=== PATIENT | female | born 1960 | race Caucasian/White ===

== ENCOUNTER 2017-07-27 12:55 | Emergency (ER) | payer SELFPAY ==
[2010-03-10 07:36] VITALS: BMI 27.8
[2017-07-27 14:03] LABS: BASOPHILS 0.4 % (0-2); EOSINOPHILS 1.2 % (0-7); HEMATOCRIT 36.7 % (36.0-48.0); HEMOGLOBIN 12.2 g/dL (12-16); IMMATURE GRANULOCYTES 0.5 % (0-5); LYMPHOCYTES 33.7 % (15-50); MCH 31.9 pg (26.0-34.0); MCHC 33.2 g/dL (31.0-37.0); MCV 95.8 fL (80.0-100.0); MEAN PLATELET VOLUME 9.5 fL (7.4-10.4); MONOCYTES 8.5 % (2-11); NEUTROPHILS 55.7 % (40-80); RBC 3.83 10x6/uL (4.00-5.40); RDW 13.6 % (11.5-14.5); WBC 13.6 10x3/uL (4.8-10.8)
[2017-07-27 14:04] LABS: ALBUMIN 3.2 g/dL (3.4-5.0); BILIRUBIN - TOTAL 0.3 mg/dL (0.2-1.3); CARBON DIOXIDE 23.6 mmol/L (21.0-32.0); CREATININE - SERUM 1.1 mg/dL (0.6-1.3); POTASSIUM - SERUM 3.6 mmol/L (3.5-5.1); PROTEIN - SERUM 6.3 g/dL (6.4-8.2)
[2017-07-27 14:06] LABS: PLATELET COUNT 311 10x3/uL (130-400)
[2017-07-27 14:51] LABS: APPEARANCE CLEAR (CLEAR); COLOR YELLOW (YELLOW)
[2017-07-27 14:52] LABS: BILIRUBIN NEGATIVE (NEGATIVE); GLUCOSE NEGATIVE (NEGATIVE); KETONE NEGATIVE (NEGATIVE); LEUKOCYTE ESTERASE NEGATIVE (NEGATIVE); NITRITE NEGATIVE (NEGATIVE); PROTEIN NEGATIVE (NEGATIVE); UROBILINOGEN NORMAL (NORMAL)
[2017-07-27 15:22] LABS: UDS - AMPHET NEGATIVE QUAL (NEGATIVE); UDS - BARB NEGATIVE QUAL (NEGATIVE); UDS - BENZO NEGATIVE QUAL (NEGATIVE); UDS - COCAINE NEGATIVE QUAL (NEGATIVE); UDS - METH NEGATIVE QUAL (NEGATIVE); UDS - OPIATE NEGATIVE QUAL (NEGATIVE); UDS - PCP NEGATIVE QUAL (NEGATIVE); UDS - THC NEGATIVE QUAL (NEGATIVE)
== END 2017-07-27 15:50 | disposition left against medical advice (07) ==
LOC: D.ER 12:55
PROVIDERS: Physician Assistant
DX: I95.9 Hypotension, unspecified (principal); G89.29 Other chronic pain; I10 Essential (primary) hypertension; R53.83 Other fatigue; F17.200 Nicotine dependence, unspecified, uncomplicated

== ENCOUNTER 2019-08-24 22:22 | Inpatient (IN) | payer MEDICARE ==
[~2019-08-24] VITALS: Ht 162.6 cm; Wt 67.6 kg
[2019-08-24] MEDS ORDERED: AMITRIPTYLINE H50 MG PO (22:27)
[2019-08-24] MEDS ORDERED: REXULTI1 MG PO (22:27)
[2019-08-24] MEDS ORDERED: ALBUTEROL SULF8.5 GM INH (22:28)
[2019-08-24 22:59] LABS: BASOPHILS 0.1 % (0-2); EOSINOPHILS 1.3 % (0-7); HEMATOCRIT 34.7 % (36.0-48.0); HEMOGLOBIN 11.8 g/dL (12-16); IMMATURE GRANULOCYTES 0.3 % (0-5); LYMPHOCYTES 17.4 % (15-50); MCH 31.8 pg (26.0-34.0); MCV 93.5 fL (80.0-100.0); MEAN PLATELET VOLUME 9.4 fL (7.4-10.4); MONOCYTES 7.1 % (2-11); NEUTROPHILS 73.8 % (40-80); PLATELET COUNT 274 10x3/uL (130-400); RBC 3.71 10x6/uL (4.00-5.40); RDW 13.3 % (11.5-14.5); WBC 14.9 10x3/uL (4.8-10.8)
[2019-08-24 23:22] LABS: ALBUMIN 2.8 g/dL (3.4-5.0); ANION GAP 14.4 mmol/L (8-16); BILIRUBIN - TOTAL 0.41 mg/dL (0.2-1.3); CALCIUM 8.4 mg/dL (8.5-10.1); CARBON DIOXIDE 25.9 mmol/L (21.0-32.0); CREATININE - SERUM 0.9 mg/dL (0.6-1.3); POTASSIUM - SERUM 2.3 mmol/L (3.5-5.1)
[2019-08-25 00:04] LABS: APPEARANCE CLEAR (CLEAR); BILIRUBIN NEGATIVE (NEGATIVE); COLOR STRAW (YELLOW); GLUCOSE NEGATIVE (NEGATIVE); KETONE NEGATIVE (NEGATIVE); NITRITE NEGATIVE (NEGATIVE); PROTEIN NEGATIVE (NEGATIVE); UROBILINOGEN NORMAL (NORMAL)
--- NOTE | 2019-08-25 01:04 | NUR ---
PT ARRIVED ON UNIT VIA WHEELCHAIR, ESCORTED BY ER NURSE. ORIENTED TO ROOM AND CALL LIGHT. ASSISTED IN PUTTING ON GOWN. POSITIONED IN BED FOR COMFORT.
[2019-08-25] MEDS ORDERED: AMBIEN10 MG PO (01:25)
[2019-08-25] MEDS ORDERED: ZOLOFT50 MG PO (01:26)
[2019-08-25 01:36] VITALS: BP 151/88; BMI 25.6
--- NOTE | 2019-08-25 03:10 | NUR ---
GAVE HS MEDS TO INCLUDE ORDERED ANTIBIOBICS.
--- NOTE | 2019-08-25 04:46 | NUR ---
PT RESTING QUIETLY AT THIS TIME, WITH OCCAISIONAL CONGESTED COUGH.
[2019-08-25 05:04] VITALS: BP 110/68
[2019-08-25 07:26] LABS: BASOPHILS 0.2 % (0-2); EOSINOPHILS 0 % (0-7); HEMATOCRIT 34.2 % (36.0-48.0); HEMOGLOBIN 11.2 g/dL (12-16); IMMATURE GRANULOCYTES 0.2 % (0-5); MCH 31.3 pg (26.0-34.0); MCHC 32.7 g/dL (31.0-37.0); MCV 95.5 fL (80.0-100.0); MEAN PLATELET VOLUME 9.9 fL (7.4-10.4); MONOCYTES 0.8 % (2-11); NEUTROPHILS 92.8 % (40-80); PLATELET COUNT 263 10x3/uL (130-400); RBC 3.58 10x6/uL (4.00-5.40); RDW 13.7 % (11.5-14.5); WBC 10.5 10x3/uL (4.8-10.8)
[2019-08-25 07:52] LABS: % SATURATION 13 % (15-55); IRON 32 ug/dl (35-150); TOTAL IRON BIND CAPACITY 243 ug/dl (260-445); UNSAT IRON BIND CAPACITY 211 ug/dl (150-375)
[2019-08-25 08:00] LABS: ALBUMIN 2.4 g/dL (3.4-5.0); BILIRUBIN - TOTAL 0.2 mg/dL (0.2-1.3); CALCIUM 8.6 mg/dL (8.5-10.1); CARBON DIOXIDE 21.8 mmol/L (21.0-32.0); CREATININE - SERUM 0.9 mg/dL (0.6-1.3); MAGNESIUM - SERUM 1.8 mg/dL (1.8-2.4); PHOSPHOROUS 2.7 mg/dL (2.5-4.9); PROTEIN - SERUM 5.8 g/dL (6.4-8.2)
[2019-08-25 08:01] LABS: ANION GAP 16.5 mmol/L (8-16); POTASSIUM - SERUM 3.3 mmol/L (3.5-5.1)
[2019-08-25 08:06] VITALS: BP 153/89
[2019-08-25 09:17] LABS: UDS - AMPHET NEGATIVE QUAL (NEGATIVE); UDS - BARB NEGATIVE QUAL (NEGATIVE); UDS - BENZO NEGATIVE QUAL (NEGATIVE); UDS - COCAINE NEGATIVE QUAL (NEGATIVE); UDS - OPIATE NEGATIVE QUAL (NEGATIVE); UDS - PCP NEGATIVE QUAL (NEGATIVE); UDS - THC NEGATIVE QUAL (NEGATIVE)
--- NOTE | 2019-08-25 12:27 | NUR ---
PT RESTING IN BED. NO SIGNS OF DISTRESS. IV TO RIGHT AC PATENT NO REDNESS OR TENDERENSS. ON 2L NC. ON TELEMETRY [address] DENIES ANY FURTHER NEED AT THIS TIME. CALL LIGHT IN REACH. BED LOW POSITION. NO FAMILY AT BEDSIDE AT THIS TIME.
[2019-08-25 12:56] VITALS: BP 131/72
[2019-08-25 13:54] VITALS: Ht 162.6 cm; Wt 67.6 kg
--- NOTE | 2019-08-25 15:50 | MORECARE ---
CASE MANAGEMENT DISCHARGE SUMMARY PATIENT: NIELS HENSLEY UNIT: [id number] ADM DATE: 08/25/19 AGE: 58 : 60 SEX: F ROOM/BED: D.2229 AUTHOR: ARIANNA,DOC PHYSICIAN: REFERRING PHYSICIAN: TOM DC MD DATE OF SERVICE: 08/25/19 Discharge Plan Patient Name: NIELS HENSLEY Facility: [facility]:[place] : 1960 Planned Disposition: Home Anticipated Discharge Date: Discharge Date: Expected LOS: Initial Reviewer: [email or web address] Initial Review Date: 08/25/2019 Generated: 08/25/19 4:50 pm Comments DCP- Discharge Planning Updated by [email or web address]: Jacqueline Malik on 08/25/19 2:[address] Patient Name: NIELS HENSLEY Admission Status: ER Accout number: [id number] Admission Date: 08-25-2019 : 1960 Admission Diagnosis: Attending: TOM CD Current LOS: 1 Anticipated DC Date: Planned Disposition: Home Primary Insurance: MEDICARE A & B Discharge Planning Comments: CM met with patient to complete initial dc planning assessment. CM educated patient on the CM role and verbal consent given by patient to complete assessment. Patient lives at home with a room mate. States she lives at [address] [place] [address] in [place]. At discharge patient plans to return and feels this is a safe discharge. CM discussed availability of home health, rehab services, and medical equipment. Patient denied known discharge needs at this time. States her friend, Bonny, will take her home on discharge. CM will continue to follow and will assist as needed with dc plans/needs. Check Processor: Jacqueline Malik DCPIA - Discharge Planning Initial Assessment Updated by [id number]: Jacqueline Malik on 08/25/19 3:48 pm * Is the patient Alert and Oriented? Yes * How many steps to enter\exit or inside your home? 4/0 * PCP Dr. Doll * Pharmacy [facility] on [address] [facility] * Preadmission Environment Home with Family * ADLs Independent * Equipment None * List name and contact numbers for known caregivers / representatives who currently or will assist patient after discharge: oBnny - [phone] - [phone] * Verbal permission to speak to the caregivers and representatives has been obtained from the patient. Yes * Community resources currently utilized None * Additional services required to return to the preadmission environment? No * Can the patient safely return to the preadmission environment? Yes * Has this patient been hospitalized within the prior 30 days at any hospital? No Patient Name: NIELS HENSLEY Page 66201 at 1550 All edits/amendments must be made on the electronic document DICTATION DATE: 08/25/19 155 SECURITIES ADVISER: JOSÉ MIGUEL 08/25/19 1550 RPT#: [id number] DC DATE: STATUS: ADM IN [facility] [address] [place] [address] END OF REPORT
[2019-08-25 17:07] VITALS: BP 127/85
[2019-08-25 20:00] VITALS: BP 116/80
[2019-08-26] VITALS: BP 133/84
--- NOTE | 2019-08-26 01:50 | NUR ---
I have reviewed this patient and I concur with the Shift Assessment completed by the Licensed Practical Nurse today this shift.
--- NOTE | 2019-08-26 03:56 | NUR ---
A&O X 4. REPORTS SORE THROAT FROM COUGHING. REPORTS PRODUCTIVITY, BUT UNABLE TO COUGH UP ANY SPUTUM AT THIS TIME. PT IS AMBULATORY AD EJ. REQUESTS SNACK. INFORMED PT ON GLUCOSE AND DIET. PT VERBALIZED UNDERSTANDING. DENIES NEEDS AT THIS TIME.
[2019-08-26 04:00] VITALS: BP 137/91
[2019-08-26 06:06] LABS: BASOPHILS 0.1 % (0-2); EOSINOPHILS 0 % (0-7); HEMATOCRIT 31.3 % (36.0-48.0); IMMATURE GRANULOCYTES 0.4 % (0-5); LYMPHOCYTES 7.1 % (15-50); MCH 31.2 pg (26.0-34.0); MCHC 31.9 g/dL (31.0-37.0); MEAN PLATELET VOLUME 10.1 fL (7.4-10.4); MONOCYTES 3.7 % (2-11); NEUTROPHILS 88.7 % (40-80); PLATELET COUNT 272 10x3/uL (130-400); RBC 3.21 10x6/uL (4.00-5.40)
[2019-08-26 06:17] LABS: MCV 97.5 fL (80.0-100.0); WBC 15.8 10x3/uL (4.8-10.8)
[2019-08-26 06:30] LABS: CALCIUM 8.5 mg/dL (8.5-10.1); CARBON DIOXIDE 24.4 mmol/L (21.0-32.0); CHLORIDE - SERUM 112 mmol/L (98-107); CREATININE - SERUM 0.8 mg/dL (0.6-1.3); MAGNESIUM - SERUM 1.8 mg/dL (1.8-2.4); SODIUM 145 mmol/L (136-145); eGFR NON AFRICAN AMERICAN 78 mL/min (90-120)
[2019-08-26 06:33] LABS: CALC OSMOLALITY 291 mosm/kg (275-300); GLUCOSE 126 mg/dL (74-106); PHOSPHOROUS 3.4 mg/dL (2.5-4.9); POTASSIUM - SERUM 4.6 mmol/L (3.5-5.1); UREA NITROGEN 15 mg/dL (7-18)
[2019-08-26 09:47] VITALS: BP 117/75
--- NOTE | 2019-08-26 10:26 | NUR ---
REC'D PT LYING IN BED RESP EVEN AND UNLABORED LUNG SOUNDS CLEAR RESP EVEN AND UNLABORED O2@1L/MIN VIA NC CONTINUOUSLY. HEART RATE IRREGULAR AT THIS TIME. SKIN PINK WARM AND DRY WITH GOOD TURGOR NO EDEMA NOTED TO BLE. IV TO RIGHT AC PATENT AND INTACT AT THIS TIME. SRX2 BED AT LOWEST SETTING WITH BRAKES LOCKED CALL LIGHT WITHIN REACH WILL CONTINUE TO MONITOR.
[2019-08-26 13:39] VITALS: BP 117/77
[2019-08-26 17:00] VITALS: BP 121/69
--- NOTE | 2019-08-26 19:15 | NUR ---
RECEIVED CARE FROM DAY NURSE. SITTING UP IN BED WATCHING TV. NO NEEDS VOICED AT THIS TIME. CALL LIGHT AT SIDE. IV INFUSING PER ORDER TO PATENT RIGHT AC PER ORDER.
[2019-08-26 20:45] VITALS: BP 119/80
--- NOTE | 2019-08-27 00:20 | NUR ---
IV IN RIGHT AC LEAKING, SWOLLEN, AND RED. DC'D WITH TIP INTACT. RESITED TO RIGHT FA. 22 GAUGE X3 STICKS WITH GOOD BLOOD RETURN NOTED.
[2019-08-27 00:46] VITALS: BP 135/91
--- NOTE | 2019-08-27 02:25 | NUR ---
I have reviewed this patient and I concur with the Shift Assessment completed by the Licensed Practical Nurse today this shift.
[2019-08-27 05:10] VITALS: BP 120/85
[2019-08-27 06:19] LABS: BASOPHILS 0.1 % (0-2); EOSINOPHILS 0 % (0-7); HEMATOCRIT 34.3 % (36.0-48.0); HEMOGLOBIN 10.8 g/dL (12-16); IMMATURE GRANULOCYTES 1.1 % (0-5); LYMPHOCYTES 9.3 % (15-50); MCH 31.3 pg (26.0-34.0); MCHC 31.5 g/dL (31.0-37.0); MCV 99.4 fL (80.0-100.0); MONOCYTES 3.9 % (2-11); NEUTROPHILS 85.6 % (40-80); PLATELET COUNT 321 10x3/uL (130-400); RBC 3.45 10x6/uL (4.00-5.40); RDW 14.3 % (11.5-14.5); WBC 18.6 10x3/uL (4.8-10.8)
[2019-08-27 07:25] LABS: ANION GAP 13.8 mmol/L (8-16); CALCIUM 8.1 mg/dL (8.5-10.1); CARBON DIOXIDE 23.9 mmol/L (21.0-32.0); MAGNESIUM - SERUM 1.6 mg/dL (1.8-2.4); PHOSPHOROUS 3.9 mg/dL (2.5-4.9); POTASSIUM - SERUM 4.7 mmol/L (3.5-5.1)
[2019-08-27 07:29] LABS: CREATININE - SERUM 1.1 mg/dL (0.6-1.3)
[2019-08-27 09:36] VITALS: BP 121/87
--- NOTE | 2019-08-27 09:45 | NUR ---
ALERT AND ORIENTED X4. REFUSES SCD'S WITH NO PERIPHERAL EDEMA AND PEDAL PULSES NOTED. EXPIRATORY WHEEZES NOTED TO RUQ,RLQ, AND LLQ POSTERIOR. INSTRUCTED ON NEED FOR SPUTUM SPECEMIN. NO DYSPNEA NOTED AT THIS TIME. ENCOURAGED TO USE CALLL LIGHT FOR ASSSIT AND CAP REFILL <3 SEC.
[2019-08-27 12:34] VITALS: BP 135/82
[2019-08-27 16:47] VITALS: BP 127/86
--- NOTE | 2019-08-27 19:15 | NUR ---
RECEIVED CARE FROM DAY NURSE. LYING IN BED WATCHING TV. NO NEEDS VOICED AT THIS TIME. CALL LIGHT AT SIDE. IV INFUSING PER ORDER TO RIGHT FA.
[2019-08-27 20:56] VITALS: BP 129/81
--- NOTE | 2019-08-27 23:38 | NUR ---
IV IN RIGHT FA RED AND SWOLLEN. DC'D WITH TIP INTACT. RESITED TO RIGHT FA. 22 GAUGE X2 STICKS WITH GOOD BLOOD RETURN NOTED.
[2019-08-28 01:48] VITALS: BP 126/76
[2019-08-28 05:24] VITALS: BP 120/61
[2019-08-28 05:41] LABS: BASOPHILS 0.1 % (0-2); EOSINOPHILS 0 % (0-7); HEMATOCRIT 33.6 % (36.0-48.0); HEMOGLOBIN 10.5 g/dL (12-16); IMMATURE GRANULOCYTES 1.3 % (0-5); LYMPHOCYTES 13.5 % (15-50); MCH 31.1 pg (26.0-34.0); MCHC 31.3 g/dL (31.0-37.0); MCV 99.4 fL (80.0-100.0); MEAN PLATELET VOLUME 10.1 fL (7.4-10.4); NEUTROPHILS 81.1 % (40-80); PLATELET COUNT 298 10x3/uL (130-400); RBC 3.38 10x6/uL (4.00-5.40); RDW 14.1 % (11.5-14.5)
[2019-08-28 05:48] LABS: WBC 11.9 10x3/uL (4.8-10.8)
[2019-08-28 05:55] LABS: ANION GAP 11.2 mmol/L (8-16); CALCIUM 7.7 mg/dL (8.5-10.1); CARBON DIOXIDE 28.5 mmol/L (21.0-32.0); MAGNESIUM - SERUM 1.8 mg/dL (1.8-2.4); PHOSPHOROUS 3.7 mg/dL (2.5-4.9); POTASSIUM - SERUM 4.7 mmol/L (3.5-5.1)
[2019-08-28 07:59] VITALS: BP 134/91
--- NOTE | 2019-08-28 08:08 | NUR ---
AWAKE AND ALERT. ORIENTED X3. NO C/O THIS AM. LUNGS ARE CLEAR BILATERALLY, NO COUGH NOTED. SKIN IS INTACT WTIHOUT REDNESS. IV TO RIGHT FOREARM IS PATENT WITHOUT REDNESS AT INSERTION SITE. REPORTS UPTO BR PER SELF WITH GOOD BM. DENIES NEEDS.
--- NOTE | 2019-08-28 10:11 | NUR ---
ATE MOST OF BREAKFAST. TOOK AM MEDS WITHOUT DIFFICULTY. NO NEEDS NOTED.
--- NOTE | 2019-08-28 11:30 | NUR ---
FSBS 129. NO COVERAGE REQUIRED.
[2019-08-28 15:55] VITALS: BP 120/80
--- NOTE | 2019-08-28 17:00 | NUR ---
FSBS 179. GIVEN 4 UNITS SUBQ PER SS OF REGULAR.
--- NOTE | 2019-08-28 18:49 | NUR ---
ATE ALL OF SUPPER. DENIES NEEDS. NO CHANGES NOTED.
--- NOTE | 2019-08-28 20:00 | NUR ---
A/O WITH NO SIGNS OF ACUTE DISTRESS. IV TO THE RT FOREARM WITH NO REDNESS OR SWELLING. O2 VIA NC @2L. DENIES PAIN OR OTHER NEEDS AT THIS TIME. CONTINUE WITH PLAN OF CARE.
[2019-08-28 22:28] VITALS: BP 130/91
[2019-08-29] VITALS: BP 145/84
[2019-08-29 05:16] LABS: BASOPHILS 0.1 % (0-2); EOSINOPHILS 0 % (0-7); HEMATOCRIT 34.4 % (36.0-48.0); HEMOGLOBIN 10.9 g/dL (12-16); LYMPHOCYTES 14.2 % (15-50); MCH 31.2 pg (26.0-34.0); MCHC 31.7 g/dL (31.0-37.0); MCV 98.6 fL (80.0-100.0); MEAN PLATELET VOLUME 9.7 fL (7.4-10.4); MONOCYTES 5.5 % (2-11); NEUTROPHILS 77.2 % (40-80); PLATELET COUNT 288 10x3/uL (130-400); RBC 3.49 10x6/uL (4.00-5.40); RDW 13.8 % (11.5-14.5); WBC 13.2 10x3/uL (4.8-10.8)
[2019-08-29 05:47] LABS: CALCIUM 8.1 mg/dL (8.5-10.1); CREATININE - SERUM 1.1 mg/dL (0.6-1.3); MAGNESIUM - SERUM 1.8 mg/dL (1.8-2.4); PHOSPHOROUS 4.2 mg/dL (2.5-4.9)
[2019-08-29 06:13] VITALS: BP 140/72
--- NOTE | 2019-08-29 07:28 | NUR ---
PT IS RESTING IN BED WITH EYES OPEN. RESPIRATIONS ARE EVEN AND UNLABORED. PT DENIES PRESENCE OF PAIN/N/V AT THIS TIME. O2 VIA NC @ 2L. PT DENIES PRESENCE OF DYSPNEA/SOB. PIV TO RIGHT FA IS INFUSING WITHOUT DIFFICULTY. BED IS IN THE LOWEST POSITION. CALL LIGHT AND BEDSIDE TABLE ARE WITHIN REACH. SIDE RAILS X 2. PT DENIES FURTHER NEEDS. WILL CONT TO MONITOR.
[2019-08-29 08:55] VITALS: BP 156/94
[2019-08-29 12:15] VITALS: BP 147/91
--- NOTE | 2019-08-29 14:25 | MORECARE ---
CASE MANAGEMENT DISCHARGE SUMMARY PATIENT: NIELS HENSLEY UNIT: [id number] ADM DATE: 08/25/19 AGE: 58 : 60 SEX: F ROOM/BED: D.2229 AUTHOR: ARIANNA,DOC PHYSICIAN: REFERRING PHYSICIAN: TOM DC MD DATE OF SERVICE: 08/29/19 Discharge Plan Patient Name: NIELS HENSLEY Facility: [facility]:[place] : 1960 Planned Disposition: Home Anticipated Discharge Date: Discharge Date: Expected LOS: Initial Reviewer: [email or web address] Initial Review Date: 08/25/2019 Generated: 08/29/19 3:25 pm DCP- Discharge Planning Updated by [email or web address]: Jacqueline Malik on 08/25/19 2:[address] Patient Name: NIELS HENSLEY Admission Status: ER Accout number: [id number] Admission Date: 08-25-2019 : 1960 Admission Diagnosis: Attending: TOM DC Current LOS: 1 Anticipated DC Date: Planned Disposition: Home Primary Insurance: MEDICARE A & B Discharge Planning Comments: CM met with patient to complete initial dc planning assessment. CM educated patient on the CM role and verbal consent given by patient to complete assessment. Patient lives at home with a room mate. States she lives at [address] [place] [address] in [place]. At discharge patient plans to return and feels this is a safe discharge. CM discussed availability of home health, rehab services, and medical equipment. Patient denied known discharge needs at this time. States her friend, Bonny, will take her home on discharge. CM will continue to follow and will assist as needed with dc plans/needs. Priest: Jacqueline Malik DCPIA - Discharge Planning Initial Assessment Updated by [email or web address]: Jacqueline Malik on 08/25/19 3:48 pm * Is the patient Alert and Oriented? Yes * How many steps to enter\exit or inside your home? 4/0 * PCP Dr. Doll * Pharmacy [facility] on [address] [facility] * Preadmission Environment Home with Family * ADLs Independent * Equipment None * List name and contact numbers for known caregivers / representatives who currently or will assist patient after discharge: Bonny - [phone] - [phone] * Verbal permission to speak to the caregivers and representatives has been obtained from the patient. Yes * Community resources currently utilized None * Additional services required to return to the preadmission environment? No * Can the patient safely return to the preadmission environment? Yes * Has this patient been hospitalized within the prior 30 days at any hospital? No External Providers External Provider: Ramon Contreras Contact Date: Service Request Date: Service Type: Resolution: Reviewer: Comments: Last DP export: 08/25/19 2:50 p Patient Name: NIELS HENSLEY Page [phone] at 1425 All edits/amendments must be made on the electronic document DICTATION DATE: 08/29/191424 COMMISSIONER CONSERVATION OF RESOURCES: JOSÉ MIGUEL 08/29/191424 RPT#: [id number] DC DATE: STATUS: ADM IN [facility] [address] [place] [address] END OF REPORT
--- NOTE | 2019-08-29 15:03 | MORECARE ---
CASE MANAGEMENT DISCHARGE SUMMARY PATIENT: NIELS HENSLEY UNIT: [id number] ADM DATE: 08/25/19 AGE: 58 : 60 SEX: F ROOM/BED: D.2229 AUTHOR: KUNAL KELLER PHYSICIAN: REFERRING PHYSICIAN: TOM DC MD DATE OF SERVICE: 08/29/19 Discharge Plan Patient Name: NIELS HENSLEY Facility: [facility]:[place] : 1960 Planned Disposition: Home Anticipated Discharge Date: Discharge Date: Expected LOS: Initial Reviewer: [email or web address] Initial Review Date: 08/25/2019 Generated: 08/29/19 4:02 pm Comments DCP- Discharge Planning Updated by [email or web address]: Jacqueline Malik on 08/29/19 1:[address] I met with patient about her oxygen needs and nebulizer needs. I informed her that she would need to buy a box of duo neb at her pharmacy until she can have her [employer] company deliver it. She states that her friend at [address] [place] [address] just called and states she can no longer come there to live. She has called another friend (Katy Buchanan) and states she is going to go to [place] to live with her. States Katy has a motor home that she is setting up at a camp ground that she will be going to when she is discharged from here. I informed her that she will need electricity for her oxygen and she states they will have electricity. She is unsure what town she will be going to in [place] and states that Katy does not have a phone. She states she has left a message for Katy to call her. I instructed her to notify us when Katy gives her the address that she will be going to when she leaves the hospital. I spoke with Peyman Artis, she will bring portable to the hospital and states they can set up oxygen in a motor home. CM will continue to follow and assist with discharge planning/needs. DCP- Discharge Planning Updated by [email or web address]: Jacqueline Malik on 08/25/19 2:[address] Patient Name: NIELS HENSLEY Admission Status: ER Accout number: [id number] Admission Date: 08-25-2019 : 1960 Admission Diagnosis: Attending: TOM DC Current LOS: 1 Anticipated DC Date: Planned Disposition: Home Primary Insurance: MEDICARE A & B Discharge Planning Comments: CM met with patient to complete initial dc planning assessment. CM educated patient on the CM role and verbal consent given by patient to complete assessment. Patient lives at home with a room mate. States she lives at [address] [place] [address] in [place]. At discharge patient plans to return and feels this is a safe discharge. CM discussed availability of home health, rehab services, and medical equipment. Patient denied known discharge needs at this time. States her friend, Bonny, will take her home on discharge. CM will continue to follow and will assist as needed with dc plans/needs. Quality Systems Specialist: Jacqueline Malik DCPIA - Discharge Planning Initial Assessment Updated by [email or web address]: Jacqueline Malik on 08/25/19 3:48 pm * Is the patient Alert and Oriented? Yes * How many steps to enter\exit or inside your home? 4/0 * PCP Dr. Doll * Pharmacy [facility] on [facility] * Preadmission Environment Home with Family * ADLs Independent * Equipment None * List name and contact numbers for known caregivers / representatives who currently or will assist patient after discharge: Bonny - friend - [phone] * Verbal permission to speak to the caregivers and representatives has been obtained from the patient. Yes * Community resources currently utilized None * Additional services required to return to the preadmission environment? No * Can the patient safely return to the preadmission environment? Yes * Has this patient been hospitalized within the prior 30 days at any hospital? No Coverage Notice Reviewer: [id number] Melanie Malik Notice Issued Date-Time: 08/29/2019 14:34 Notice Type: IM Discharge Notice Notice Delivered To: Patient Relationship to Patient: Self Supervisor Files Name: Delivery Method: HAND - Hand Delivered Bonnie Days: Prior Verbal Notification: Recipient Understood Notice: Yes Recipient Signature: Yes Med Rec Note Co-signed by Attending: Coverage Notice Comment: IMM explained, signed, given, copy placed in MR Reviewer: [email or web address] Melanie Malik Notice Issued Date-Time: 08/29/2019 14:34 Notice Type: Patient Choice Letter Notice Delivered To: Patient Relationship to Patient: Self Supervisor Files Name: Delivery Method: HAND - Hand Delivered Bonnie Days: Prior Verbal Notification: Recipient Understood Notice: Yes Recipient Signature: Yes Med Rec Note Co-signed by Attending: Coverage Notice Comment: ROSEANNA for Yeyo Meyers DP export: 08/29/19 1:25 p Patient Name: NIELS HENSLEY Page [id number] at 1503 All edits/amendments must be made on the electronic document DICTATION DATE: 08/29/191501 PROCESS EXCELLENCE MANAGER: JOSÉ MIGUEL 08/29/191501 RPT#: [id number] DC DATE: STATUS: ADM IN [facility] [address] [place] [address] END OF REPORT
[2019-08-29 16:20] VITALS: BP 122/90
--- NOTE | 2019-08-29 16:44 | NUR ---
RIGHT ARM PIV LEAKING. PT STATES THAT SHE WOULD LIKE TO NOT HAVE IV ACCESS REATTEMPTED AT THIS TIME.
--- NOTE | 2019-08-29 20:00 | NUR ---
ASSESSMENT PER FLOWSHEET. IV PATENT LEFT WRIST OF NS W/40MEQ KCL AT 75CC'S/HR.O2 AT 2L/M PER NC. PATIENT TAKES OFF AND ON. SR UP X2 CALL LIGHT WITHIN REACH.
--- NOTE | 2019-08-29 21:30 | NUR ---
MEDS GIVEN PER MAR.
[2019-08-29 22:21] VITALS: BP 166/103
--- NOTE | 2019-08-30 | NUR ---
EYES CLOSED RESPIRATIONS WITH EASE AND UNLABORED.
[2019-08-30 01:50] VITALS: BP 130/81
--- NOTE | 2019-08-30 04:10 | NUR ---
RESTING QUIETLY DENIES NEEDS.
[2019-08-30 04:58] VITALS: BP 154/80
[2019-08-30 06:36] LABS: BASOPHILS 0.1 % (0-2); EOSINOPHILS 0.1 % (0-7); HEMATOCRIT 33.7 % (36.0-48.0); HEMOGLOBIN 10.9 g/dL (12-16); IMMATURE GRANULOCYTES 4.6 % (0-5); LYMPHOCYTES 18.9 % (15-50); MCH 31.6 pg (26.0-34.0); MCHC 32.3 g/dL (31.0-37.0); MCV 97.7 fL (80.0-100.0); MEAN PLATELET VOLUME 9.9 fL (7.4-10.4); MONOCYTES 8.4 % (2-11); NEUTROPHILS 67.9 % (40-80); PLATELET COUNT 300 10x3/uL (130-400); RBC 3.45 10x6/uL (4.00-5.40); RDW 13.9 % (11.5-14.5)
[2019-08-30 06:49] LABS: CALCIUM 7.8 mg/dL (8.5-10.1); MAGNESIUM - SERUM 2.1 mg/dL (1.8-2.4); PHOSPHOROUS 4.2 mg/dL (2.5-4.9)
--- NOTE | 2019-08-30 07:39 | NUR ---
PT IS RESTING IN BED WITH EYES CLOSED. RESPIRATIONS ARE EVEN AND UNLABORED. PT DENIES PRESENCE OF PAIN/N/V. PIV IS INFUSING TO LEFT FA WITHOUT DIFFICULTY. PT IS AAO X 4. O2 VIA NC @ 3L. PT DENEIS PRESENCE OF DYSPNEA/SOB. BED IS IN THE LOWEST POSITION. CALL LIGHT AND BEDSIDE TABLE ARE WITHIN REACH. SIDE RAILS X 2. PT DENIES FURTHER NEEDS.
[2019-08-30 09:03] VITALS: BP 135/90
--- NOTE | 2019-08-30 11:18 | NUR ---
PT PIV IS SALINE LOCKED AT THIS TIME.
[2019-08-30] MEDS ORDERED: PROTONIX40 MG PO (11:25)
[2019-08-30] MEDS ORDERED: TESSALON PERLE100 MG PO (11:25)
[2019-08-30] MEDS ORDERED: MUCINEX600 MG PO (11:25)
[2019-08-30] MEDS ORDERED: FLUTICASONE PRO16 GM NASAL (11:25)
[2019-08-30] MEDS ORDERED: REQUIP0.25 MG PO (11:25)
[2019-08-30] MEDS ORDERED: ZITHROMAX500 MG PO (11:26)
[2019-08-30] MEDS ORDERED: Nicoderm [PBKC] TRANSDERM (11:26)
[2019-08-30] MEDS ORDERED: LISINOPRIL10 MG PO (11:26)
[2019-08-30] MEDS ORDERED: PREDNISONE10 MG PO (11:26)
[2019-08-30] MEDS ORDERED: OMNICEF300 MG PO (11:26)
--- NOTE | 2019-08-30 11:27 | MORECARE ---
CASE MANAGEMENT DISCHARGE SUMMARY PATIENT: NIELS HENSLEY UNIT: [id number] ADM DATE: 08/25/19 AGE: 58 : 60 SEX: F ROOM/BED: D.2229 AUTHOR: ARIANNADOC PHYSICIAN: REFERRING PHYSICIAN: TOM DC MD DATE OF SERVICE: 08/30/19 Discharge Plan Patient Name: NIELS HENSLEY [facility] [facility] 1960 Planned Disposition: Home Anticipated Discharge Date: Discharge Date: Expected LOS: Initial Reviewer: [email or web address] Initial Review Date: 08/25/2019 Generated: 08/30/19 12:26 pm Comments DCP- Discharge Planning Updated by [email or web address]: Jacqueline Malik on 08/30/19 10:[address] Patient's friend is here to pick her up. She states her motor home is parked at [facility] on [facility]. She has already had her portable oxygen delivered. I called Nahomi and informed her that the motor home is at [facility], Nahomi states they will deliver the oxygen and nebulizer to her at [facility] on [facility]. Patient has been informed to call them when she is on the way to [place] for larger portable tanks and states she understands and has their number. I instructed patient to get a PCP and a road cutter as soon as she gets to [place] for follow up, voiced understanding. CM will continue to assist with discharge planning/needs. DCP- Discharge Planning Updated by [email or web address]: Jacqueline Malik on 08/29/19 1:[address] I met with patient about her oxygen needs and nebulizer needs. I informed her that she would need to buy a box of duo neb at her pharmacy until she can have her DME company deliver it. She states that her friend at [facility] just called and states she can no longer come there to live. She has called another friend (Katy Buchanan) and states she is going to go to [place] to live with her. States Katy has a motor home that she is setting up at a camp ground that she will be going to when she is discharged from here. I informed her that she will need electricity for her oxygen and she states they will have electricity. She is unsure what town she will be going to in [place] and states that Katy does not have a phone. She states she has left a message for Katy to call her. I instructed her to notify us when Katy gives her the address that she will be going to when she leaves the hospital. I spoke with Peyman Artis, she will bring portable to the hospital and states they can set up oxygen in a motor home. CM will continue to follow and assist with discharge planning/needs. DCP- Discharge Planning Updated by [id number]: Jacqueline Malik on 08/25/19 2:[address] Patient Name: NIELS HENSLEY Admission Status: ER Accout number: [id number] Admission Date: 08-25-2019 : 1960 Admission Diagnosis: Attending: TOM DC Current LOS: 1 Anticipated DC Date: Planned Disposition: Home Primary Insurance: MEDICARE A & B Discharge Planning Comments: CM met with patient to complete initial dc planning assessment. CM educated patient on the CM role and verbal consent given by patient to complete assessment. Patient lives at home with a room mate. States she lives at [address] [place] [address] in [place]. At discharge patient plans to return and feels this is a safe discharge. CM discussed availability of home health, rehab services, and medical equipment. Patient denied known discharge needs at this time. States her friend, Bonny, will take her home on discharge. CM will continue to follow and will assist as needed with dc plans/needs. Chlorinator: Jacqueline Malik DCPIA - Discharge Planning Initial Assessment Updated by [email or web address]: Jacqueline Malik on 08/25/19 3:48 pm * Is the patient Alert and Oriented? Yes * How many steps to enter\exit or inside your home? 4/0 * PCP Dr. Doll * Pharmacy [facility] on [address] and [facility] * Preadmission Environment Home with Family * ADLs Independent * Equipment None * List name and contact numbers for known caregivers / representatives who currently or will assist patient after discharge: Bonny - friend - [phone] * Verbal permission to speak to the caregivers and representatives has been obtained from the patient. Yes * Community resources currently utilized None * Additional services required to return to the preadmission environment? No * Can the patient safely return to the preadmission environment? Yes * Has this patient been hospitalized within the prior 30 days at any hospital? No Coverage Notice Reviewer: [id number] Malik Notice Issued Date-Time: 08/29/2019 14:34 Notice Type: IM Discharge Notice Notice Delivered To: Patient Relationship to Patient: Self Tester Waste Disposal Leakage Name: Delivery Method: HAND - Hand Delivered Bonnie Days: Prior Verbal Notification: Recipient Understood Notice: Yes Recipient Signature: Yes Med Rec Note Co-signed by Attending: Coverage Notice Comment: IMM explained, signed, given, copy placed in MR Reviewer: [id number] Malik Notice Issued Date-Time: 08/29/2019 14:34 Notice Type: Patient Choice Letter Notice Delivered To: Patient Relationship to Patient: Self Tester Waste Disposal Leakage Name: Delivery Method: HAND - Hand Delivered Bonnie Days: Prior Verbal Notification: Recipient Understood Notice: Yes Recipient Signature: Yes Med Rec Note Co-signed by Attending: Coverage Notice Comment: ROSEANNA for Yeyo Luigi DP export: 08/29/19 2:03 p Patient Name: NIELS HENSLEY Page [phone] at 1127 All edits/amendments must be made on the electronic document DICTATION DATE: 08/30/19 1126 SOIL SPECIALIST: JOSÉ MIGUEL 08/30/19 1126 RPT#: [id number] DC DATE: STATUS: ADM IN [facility] [address] [place] [address] END OF REPORT
[2019-08-30] MEDS ORDERED: IPRAT-ALBUT 0.5-3 ML UPD (11:47)
[2019-08-30 12:56] VITALS: BP 126/88
--- NOTE | 2019-08-30 13:42 | NUR ---
ALL DISCHARGE INSTRUCTIONS COVERED. PT DENIES FURTHER QUESTIONS/CONCERNS/NEEDS. PATIENT OWN MEDICATION X 2 GIVEN BACK TO PT. SEE RX CARD IN PT CHART. PIV REMOVED FROM LEFT FA WITH CATHETER TIP INTACT. DRESSING APPLIED. PT WITH OWN OXYGEN AVAILABLE. PT STATES THAT SHE IS AWARE OF HOW TO OPERATE O2. PT DENIES FURTHER NEEDS. AT THIS TIME. [facility] IS WAITING FOR PT TRANSPORT. BED IS IN THE LOWEST POSITION . CALL LIGHT AND BEDSIDE TABLE ARE WITHIN REACH. SIDE RAISLX 2. PT DENIES FURTHER NEEDS.
--- NOTE | 2019-08-30 13:52 | NUR ---
FLU SHOT GIVEN. SEE EMAR. PT TRANSPORTED FROM ROOM VIA WHEELCHAIR [facility]. PT HAS OWN OXYGEN ON. PT DENIES FURTHER NEEDS/QUESTIONS/CONCERNS.
--- NOTE | 2019-08-31 10:48 | MORECARE ---
CASE MANAGEMENT DISCHARGE SUMMARY PATIENT: NIELS HENSLEY UNIT: [id number] ADM DATE: 08/25/19 AGE: 58 : 60 SEX: F ROOM/BED: D.2229 AUTHOR: ARIANNADOC PHYSICIAN: REFERRING PHYSICIAN: TOM DC MD DATE OF SERVICE: 08/31/19 Discharge Plan Patient Name: NIELS HENSLEY Facility: [facility]:[place] : 1960 Planned Disposition: Home Anticipated Discharge Date: Discharge Date: 08/30/2019 Expected LOS: 0 Initial Reviewer: [email or web address] Initial Review Date: 08/25/2019 Generated: 08/31/19 11:48 am Comments DCP- Discharge Planning Updated by [email or web address]: Jacqueline Malik on 08/30/19 10:[address] Patient's friend is here to pick her up. She states her motor home is parked at [facility] on [address]. She has already had her portable oxygen delivered. I called Nahomi and informed her that the motor home is at [facility], Nahomi states they will deliver the oxygen and nebulizer to her at [facility] on [address]. Patient has been informed to call them when she is on the way to [place] for larger portable tanks and states she understands and has their number. I instructed patient to get a PCP and a fiberglass ski maker as soon as she gets to [place] for follow up, voiced understanding. CM will continue to assist with discharge planning/needs. DCP- Discharge Planning Updated by [email or web address]: Jacqueline Malik on 08/29/19 1:[address] I met with patient about her oxygen needs and nebulizer needs. I informed her that she would need to buy a box of duo neb at her pharmacy until she can have her DME company deliver it. She states that her friend at [facility] just called and states she can no longer come there to live. She has called another friend (Katy Buchanan) and states she is going to go to [place] to live with her. States Katy has a motor home that she is setting up [place] that she will be going to when she is discharged from here. I informed her that she will need electricity for her oxygen and she states they will have electricity. She is unsure what town she will be going to in [place] and states that Katy does not have a phone. She states she has left a message for Katy to call her. I instructed her to notify us when Katy gives her the address that she will be going to when she leaves the hospital. I spoke with Peyman Artis, she will bring portable to the hospital and states they can set up oxygen in a motor home. CM will continue to follow and assist with discharge planning/needs. DCP- Discharge Planning Updated by [email or web address]: Jacqueline Malik on 08/25/19 2:[address] Patient Name: NIELS HENSLEY Admission Status: ER Accout number: [id number] Admission Date: 08-25-2019 : 1960 Admission Diagnosis: Attending: TOM DC Current LOS: 1 Anticipated DC Date: Planned Disposition: Home Primary Insurance: MEDICARE A & B Discharge Planning Comments: CM met with patient to complete initial dc planning assessment. CM educated patient on the CM role and verbal consent given by patient to complete assessment. Patient lives at home with a room mate. States she lives at [address] [place] [address] in [place]. At discharge patient plans to return and feels this is a safe discharge. CM discussed availability of home health, rehab services, and medical equipment. Patient denied known discharge needs at this time. States her friend, Bonny, will take her home on discharge. CM will continue to follow and will assist as needed with dc plans/needs. Facility Engineer: Jacqueline Bhandarimi DCPIA - Discharge Planning Initial Assessment Updated by [email or web address]: Jacqueline Malik on 08/25/19 3:48 pm * Is the patient Alert and Oriented? Yes * How many steps to enter\exit or inside your home? 4/0 * PCP Dr. Doll * Pharmacy [facility] on [address] * Preadmission Environment Home with Family * ADLs Independent * Equipment None * List name and contact numbers for known caregivers / representatives who currently or will assist patient after discharge: Bonny - friend - [phone] * Verbal permission to speak to the caregivers and representatives has been obtained from the patient. Yes * Community resources currently utilized None * Additional services required to return to the preadmission environment? No * Can the patient safely return to the preadmission environment? Yes * Has this patient been hospitalized within the prior 30 days at any hospital? No Coverage Notice Reviewer: [id number] Malik Notice Issued Date-Time: 08/29/2019 14:34 Notice Type: IM Discharge Notice Notice Delivered To: Patient Relationship to Patient: Self Farm Machine Tender Name: Delivery Method: HAND - Hand Delivered Bonnie Days: Prior Verbal Notification: Recipient Understood Notice: Yes Recipient Signature: Yes Med Rec Note Co-signed by Attending: Coverage Notice Comment: IMM explained, signed, given, copy placed in MR Reviewer: [id number] Malik Notice Issued Date-Time: 08/29/2019 14:34 Notice Type: Patient Choice Letter Notice Delivered To: Patient Relationship to Patient: Self Farm Machine Tender Name: Delivery Method: HAND - Hand Delivered Bonnie Days: Prior Verbal Notification: Recipient Understood Notice: Yes Recipient Signature: Yes Med Rec Note Co-signed by Attending: Coverage Notice Comment: ROSEANNA for Yeyo Meyers DP export: 08/30/19 10:27 a Patient Name: NIELS HENSLEY Page [id number] at 1048 All edits/amendments must be made on the electronic document DICTATION DATE: 08/31/19 1048 PRODUCT TRANSFER PUMPER: JOSÉ MIGUEL 08/31/19 1048 RPT#: [id number] DC DATE:08/30/19 STATUS: DIS IN [facility] [address] [place] [address] END OF REPORT
--- NOTE | 2019-09-19 14:43 | CN ---
PATIENT NAME:NIELS TIMMONS MEDICAL RECORD: [id number] : 60 LOCATION:D.MS [place] ADMIT DATE: 08/25/19 ACCOUNT: [id number] CONSULTING PHYSICIAN: KYLE TIJERINA MD REFERRING PHYSICIAN: TOM MERAZ MD DATE OF CONSULTATION: 08/25/2019 CONSULT REQUESTING PHYSICIAN: Tom Meraz MD REASON FOR CONSULTATION: Acute exacerbation of chronic obstructive pulmonary disease and lactic acidosis. HISTORY OF PRESENT ILLNESS: Ms. Timmons is a 58-year-old female. She has more than 40-year history of smoking. The patient is sick for the last few days. She is coughing. She is wheezing. She has shortness of breath with mild exertion. The patient came into the ER, found out the patient has severe lactic acidosis and admitted with acute exacerbation of COPD. REVIEW OF SYSTEMS: As in history of present illness. PAST MEDICAL HISTORY: 1. Asthma. 2. Hypertension with a history of diarrhea. 3. Chronic backache. PAST SURGICAL HISTORY: She had hysterectomy. ALLERGIES: SHE IS ALLERGIC TO ASPIRIN. MEDICATIONS: On Taskdoer is reviewed. PERSONAL AND SOCIAL HISTORY: The patient is still current every day smoker, almost a pack a day for more than 40 years. She is also drinking on a regular basis. FAMILY HISTORY: Noncontributory. PHYSICAL EXAMINATION: GENERAL: Now, the patient is lying comfortably. She is not in acute distress. VITAL SIGNS: Blood pressure is 27.5, pulse is 97, respirations 20, temperature 97.5. The SpO2 is 98% on 2 liters nasal cannula. HEENT: Conjunctivae are pink. Sclerae nonicteric. NECK: Supple. No JVD. CHEST: The chest excursion minimal on both sides. Wheeze on forceful expiration. HEART: Rhythm regular, normal sound, no murmur. ABDOMEN: Soft, bowel sounds present. No hepatosplenomegaly. RECTAL: Deferred. EXTREMITIES: No cyanosis, no clubbing, no pedal edema. CENTRAL NERVOUS SYSTEM: The patient is awake and alert. There is no obvious cranial nerve abnormality. The gait was not tested. LABORATORY DATA: CBC: WBC 15.8, hemoglobin 10, hematocrit 31.3, and platelet count is 272. Chemistry: Sodium is 145, potassium is 4.6, chloride 112, bicarb is 24.4, and glucose 126. ABG on admission, the pH was 7.35, pCO2 was 37.5, pO2 CONSULT REPORT [id number] NIELS TIMMONS MUKUL was 93, and bicarbonate was 20.8. The lactic acid was 3.57. This was done on 3 liters nasal cannula. CHEST RADIOGRAPH: There is hyperinflation, no acute infiltrate. IMPRESSION: 1. Acute exacerbation of chronic obstructive pulmonary disease. 2. Acute hypoxic respiratory failure. 3. Lactic acidosis, most likely secondary to sepsis and labored breathing. 4. Leukocytosis. 5. Tobacco dependence syndrome. RECOMMENDATION: 1. Continue supplemental oxygen. 2. Gentle IV fluid. 3. Continue Rocephin and Zithromax IV. 4. Start Brovana and budesonide nebulizer. 5. Albuterol/ipratropium nebulizer. 6. Methylprednisolone IV. 7. Follow up labs and chest radiograph. Dr. Meraz, thank you for involving me in the care of Ms. Timmons. TRANSINT:[id number] Voice Confirmation ID: [id number] DOCUMENT ID: [id number] KYLE TIJERINA MD at 1443 CC: [id number] DICTATION DATE: 08/26/19 1639 CRITICAL CARE RN: 08/27/19 0144 DIS IN 08/30/[address] [id number]
== END 2019-08-30 13:53 | disposition home or self-care (01) | DRG 871 ==
LOC: D.ER 22:22 → D.MS 08-25 00:11 → OBSVTIME 08-25 00:11 → D.MS 08-25 11:51
PROVIDERS: Family Medicine; ADMIT Internal Medicine Nephrology; ATTEND Internal Medicine Nephrology
DX: A41.9 Sepsis, unspecified organism (principal); J18.9 Pneumonia, unspecified organism; F17.213 Nicotine dependence, cigarettes, with withdrawal; J44.1 Chronic obstructive pulmonary disease with (acute) exacerbation; J44.0 Chronic obstructive pulmonary disease with (acute) lower respiratory infection; E87.6 Hypokalemia; E83.42 Hypomagnesemia; D64.9 Anemia, unspecified; E53.8 Deficiency of other specified B group vitamins; E61.1 Iron deficiency; F10.10 Alcohol abuse, uncomplicated; J20.9 Acute bronchitis, unspecified; F41.8 Other specified anxiety disorders; F31.9 Bipolar disorder, unspecified

== ENCOUNTER → 2019-09-15 11:24 | Outpatient (CLI) | payer MEDICARE, OTHER ==
[2019-08-25 13:54] VITALS: BMI 25.5
[~2019-09-15 11:24] MED LIST: ALBUTEROL SULF8.5 GM INH; AMBIEN10 MG PO; AMITRIPTYLINE H50 MG PO; BYSTOLIC20 MG PO; FLUTICASONE PRO16 GM NASAL; IPRAT-ALBUT 0.5-3 ML UPD; LISINOPRIL10 MG PO; MUCINEX DM ER1 EAC1 PO; MUCINEX600 MG PO; NORVASC5 MG PO; Nicoderm [PBKC] TRANSDERM; OMNICEF300 MG PO; PLAVIX75 MG PO; PREDNISONE10 MG PO; PROTONIX40 MG PO; REQUIP0.25 MG PO; REXULTI1 MG PO; SINGULAIR10 MG PO; TESSALON PERLE100 MG PO; VALIUM 2 MG TAB2 MG PO; ZITHROMAX500 MG PO; ZOLOFT50 MG PO
== END | disposition home or self-care (01) ==
LOC: D.CT 11:24
PROVIDERS: ATTEND Family Medicine
DX: R10.11 Right upper quadrant pain (principal)

== ENCOUNTER 2019-10-01 21:30 | Inpatient (IN) | payer MEDICARE ==
[~2019-10-01] VITALS: Ht 162.6 cm; Wt 70.8 kg
--- NOTE | ~2019-10-01 | HEMODYNAMI ---
PATIENT:NIELS HENSLEY MEDICAL RECORD: [id number] : 60 [id number] ADMISSION DATE: 10/02/19 Generatedon:10/05/20199:23 Patient name: NIELS HENSLEY Patient #: [id number] SSN: [id number] : 1960 Date of study: 10/05/2019 Page: Of Hemodynamic Procedure Report Patient Data Patient Demographics Procedure consent was obtained First Name: NIELS Gender: Female Last Name: AYDEN : 1960 [facility] Initial: MUKUL Age: 58 year(s) Patient #: [id number] Race: SSN: [id number] Additional ID: [id number] Contact details Address: [address] [place] [address] State: [place] City: [facility] Zip code: [address] Past Medical History Allergies Allergen Reaction Date Comments Reported Aspirin 10/05/2019 Admission Admission Data Admission Date: 10/02/2019 Admission Time: 0:50 Arrival Date: 10/05/2019 Arrival Time: 0:00 Room #: D.1209 Insurance Payor: Medicare [facility] #: [id number] Height (in.): 74 BSA: 1.96 (m2) Height (cm.): 187.96 BMI: 20.03 (kg/m2) Weight (lbs.): 156 Weight (kg.): 70.76 Lab Results Lab Result Date: 10/05/2019 Lab Result Time: 0:00 Biochemistry Name Units Result Min Max BUN mg/dl 17 --(---*)-- 7 18 Creatinine mg/dl 1 --(--*-)-- 0.6 1.3 eGFR ml/min 60 *-(----)-- 90 120 NONAFRICAN CBC Name Units Result Min Max Hematocrit % 37.6 *-(----)-- 42 54 Hemoglobin g/dl 12.3 *-(----)-- 13.5 17.5 Procedure Procedure Types Cath Procedure Diagnostic Procedure [facility] w/Coronaries Sedation Charges Moderate Sedation up to 15 minutes PCI Procedure Coronary Stent Coronary Stent Initial Procedure Description Procedure Date Procedure Date: 10/05/2019 Procedure Start Time: 8:58 Procedure End Time: 9:20 Procedure Staff Name Function Aakash Templeton MD Performing Physician Lina Israel RT Monitor Mary Emerson RT Scrub Gianna Patel RN Nurse Procedure Data Cath Procedure Fluoroscopy Diagnostic fluoroscopy Total fluoroscopy Time: 4.2 time: 4.2 min min Diagnostic fluoroscopy Total fluoroscopy dose: 677 dose: 677 mGy mGy Contrast Material Contrast Material Type Amount (ml) Isovue 300 105 Entry Location Entry Primary Successful Side Size Upsize Upsize Entry Closure Ramírez ccessful Closure Location (Fr) 1 (Fr) 2 (Fr) Remarks Device Remarks Radial Right 6 Fr Mechanical artery Short Compression Estimated blood loss: 10 ml Diagnostic catheters Device Type Used For End Catheter Placement DIAGNOSTIC [place] 110cm 5 Procedure Fr catheter ([id number]) Procedure Complications No complications Procedure Medications Medication Administration Route Dosage Oxygen etCO2 Nasal cannula 3 l/min Lidocaine 2% added to field 20 Heparin Flush Bag added to field 2 bags (1000units/500ml NS) 0.9% NaCl I.V. 100 ml/hr Radial Cocktail I.A. 1 syringe (Verapamil 2mg/Nitro 400mcg/Heparin 1500units) Versed I.V. 1 mg Fentanyl I.V. 50 mcg Versed I.V. 1 mg Fentanyl I.V. 50 mcg Heparin Bolus I.V. 4000 units Integrilin (Bolus I.V. 6.2 ml 2mg/ml) Plavix P.O. 600 mg Hemodynamics Rest BSA: 1.96 (m2) HGB: 12.3 (g/dl) O2 Consumption: Estimated: 194.02 (ml/min) O2 Co nsumption indexed: Estimated:98.99 (ml/min/m) Heart Rate: 80 (bpm) Snapshots Pre Cath Intra NCS Post Cath Vital Signs Time Heart Resp SPO2 etCO2 NIBP (mmHg) Rhythm Pain Sedation Rate (ipm) (%) (mmHg) Status Level (bpm) 8:53:13 80 32 91 30.9 123/91(106) NSR 0 (11) 10(A) , No pain 8:57:25 82 11 92 30.1 119/80(101) NSR 0 (11) 10(A) , No pain 9:01:39 96 14 92 29.4 96/64(91) NSR 0 (11) 10(A) , No pain 9:06:28 89 11 92 29.3 115/82(97) NSR 0 (11) 10(A) , No pain 9:10:35 90 21 93 29.3 122/82(97) NSR 0 (11) 10(A) , No pain 9:14:46 87 15 94 30.1 120/78(95) NSR 0 (11) 10(A) , No pain 9:18:55 86 10 95 31.6 109/81(92) NSR 0 (11) 10(A) , No pain Medications Time Medication Route Dose Verified Delivered Reason Note s Effectiveness by by 8:52:24 Oxygen etCO2 3 l/min Aakash Katz used for Nasal Yokasta Patel RN procedure cannula 8:52:30 Lidocaine 2% added 20ml Aakash Finn for local to vial Yokasta Templeton MD anesthetic field 8:52:38 Heparin Flush added 2 bags Aakash Finn used for Bag to Yokasta Templeton MD procedure (1000units/500ml field NS) 8:52:47 0.9% NaCl I.V. 100 Aakash Katz Per physician ml/hr Yokasta Patel RN 8:57:16 Versed I.V. 1 mg Aakash Godwinie for sedation Yokasta Patel RN 8:57:22 Fentanyl I.V. 50 mcg Aakash Katz for sedation Yokasta Patel RN 9:00:00 Radial Cocktail I.A. 1 Aakash Finn for (Verapamil syringe Yokasta Templeton MD vasodilation 2mg/Nitro 400mcg/Heparin 1500units) 9:01:47 Versed I.V. 1 mg Aakash Godwinie for sedation Yokasta Patel RN 9:01:51 Fentanyl I.V. 50 mcg Aakash Katz for sedation Yokasta Patel RN 9:08:01 Heparin Bolus I.V. 4000 Aakash Katz for units Yokasta Patel RN anticoagulation 9:09:29 Integrilin I.V. 6.2 ml Aakash Godwinie for wast ed (Bolus 2mg/ml) Yokasta Patel RN antiplatelet 3.8 ml therapy of vial 9:18:24 Plavix P.O. 600 mg Aakash Patel RN antiplatelet therapy Procedure Log Time Note 8:19:45 Informed consent obtained and on chart 8:20:04 Procedure Status Urgent Heart Cath (IP). 8:20:07 Gianna Patel RN sent for patient. Start room use. 8:20:07 Time tracking: Regular hours (M-F 7:00 - 5:00) 8:20:10 Plan of Care:Hemodynamics will remain stable., Cardiac rhythm will remain stable., Comfort level will be maintained., Respiratory function will remain adequate., Patient/ family verbilizes understanding of procedure., Procedure tolerated without complication., Recovers from procedure without complications.. 8:34:35 Arrival Date: 10/05/2019 12:00:00 AM 8:34:38 Insurance Payor : Medicare 8:35:17 Patient Height : 74 inches 8:35:20 Patient Weight : 156 lbs 8:36:45 Lab Result : Creatinine 1 mg/dl 8:36:45 Lab Result : BUN 17 mg/dl 8:36:45 Lab Result : Hematocrit 37.6 % 8:36:45 Lab Result : Hemoglobin 12.3 g/dl 8:36:45 Lab Result : eGFR NONAFRICAN 60 ml/min 8:36:55 Diagnostic Cath Status : Elective 8:40:02 Risk of Mortality: .1 8:40:07 Risk of blood transfusion: 0.8 8:40:10 Risk of IMANI: 0.5 8:41:14 Patient received from Other to CCL 1 Alert and oriented. Tansferred to table in Supine position. 8:41:16 Warm blankets applied, and skye hugger turned on for patient comfort. 8:41:17 Correct patient and procedure confirmed by team. 8:41:18 Correct patient and procedure confirmed by team. 8:41:19 ECG and BP/O2 sat monitors applied to patient. 8:52:13 Vital chart was started 8:52:24 Oxygen 3 l/min etCO2 Nasal cannula was administered by Gianna Patel RN; used for procedure; Verbal order read back and verified. 8:52:30 Baseline sample Acquired. 8:52:30 Lidocaine 2% 20ml vial added to field was administered by Aakash Templeton MD; for local anesthetic; Verbal order read back and verified. 8:52:34 Rhythm: sinus rhythm 8:52:35 Full Disclosure recording started 8:52:38 Heparin Flush Bag (1000units/500ml NS) 2 bags added to field was administered by Aakash Templeton MD; used for procedure; Verbal order read back and verified. 8:52:38 H&P Date Dictated: 10/05/2019 New H&P dictated by physician.. 8:52:39 Pre-procedure instructions explained to patient. 8:52:39 Pre-op teaching completed and patient verbalized understanding. 8:52:41 Family unavailable. 8:52:42 Patient NPO since Midnight. 8:52:47 0.9% NaCl 100 ml/hr I.V. was administered by Gianna Patel RN; Per physician; Verbal order read back and verified. 8:52:47 Patient allergic to Aspirin 8:52:49 Is the patient allergic to Iodine/contrast media? No. 8:52:50 Is patient on blood thinner?No 8:52:51 Patient diabetic? No. 8:52:55 Patient not . Patient is over age 55. 8:52:58 Previous problem with sedation/anesthesia? No ? 8:52:59 Snore? Yes 8:53:00 Sleep apnea? No 8:53:00 Deviated septum? No 8:53:01 Opens mouth fully? Yes 8:53:03 Sticks out tongue? Yes 8:53:06 Airway obstruction? Yes COPD 8:53:11 Dentures? No MISSING TEETH 8:53:14 Pre procedure: right dorsailis pedis pulse 2+ Normal; easily identifiable; not easily obliterated 8:53:18 Modified Jose Elias's test Ulnar < 7 seconds 8:53:24 Patient pain scale 0/10 ?. 8:53:30 IV patent on arrival in right antecubital with 0.9% NaCl at KVO. 8:53:33 Lab results completed and on chart. 8:54:22 Stress Test: yes; abnormal ? 8:54:25 Right Radial & Right Groin area was prepped with chlora-prep and draped in sterile fashion 8:54:26 Alarms reviewed by R. N. 8:54:27 Sharps counted by scrub and verified by R.N. 8:54:29 Use device set Radial Dx or PCI 8:54:30 ACIST Syringe (51988) opened to sterile field. 8:54:31 Medline Cath Pack ([id number]) opened to sterile field. 8:54:32 ACIST Hand Control (74610) opened to sterile field. 8:54:32 Bag Decanter (2001S) opened to sterile field. 8:54:33 ACIST Manifold (69685) opened to sterile field. 8:54:33 Tegaderm 4 x 4 (1626W) opened to sterile field. 8:54:34 MBrace Wrist Support ([id number]) opened to sterile field. 8:54:35 EMERALD Guide Wire (306-525) opened to sterile field. 8:54:36 SHEATH 6FR RAIN (1297228) opened to sterile field. 8:56:31 --------ALL STOP TIME OUT------ 8:56:32 Final Timeout: patient, procedure, and site verified with staff and physician. All members of the team are in agreement. 8:56:34 Right Radial & Right Groin site verified by team. 8:56:37 Fire Safety Assessment: A--An alcohol-based skin anteseptic being used preoperatively., C--Open oxygen or nitrous oxide is being used., D--An ESU, laser, or fiber-optic light is being used. 8:56:40 Physical assessment completed. ASA score P 3 - A patient with severe systemic disease as per Aaaksh Templeton MD. 8:56:45 2) 60-89 Mildly reduced kidney function, and other findings (as for stage 1) point to kidney disease. 8:56:49 Maximum allowable contrast dose (3.7 X eGFR X 0.75)167 ml. 8:56:52 Sedation plan: IV Moderate Sedation Medication:Versed, Fentanyl 8:57:16 Versed 1 mg I.V. was administered by Gianna Patel RN; for sedation; Verbal order read back and verified. 8:57:22 Fentanyl 50 mcg I.V. was administered by Gianna Patel RN; for sedation; Verbal order read back and verified. 8:58:23 Procedure started. 8:58:44 Local anesthetic to right radial artery with Lidocaine 2% by Aakash Templeton MD.INITIAL ACCESS ONLY 8:59:16 Zero performed for pressure channel P1 8:59:26 A 6 Fr Short sheath was inserted into the Right Radial artery 8:59:46 A DIAGNOSTIC [place] 110cm 5 Fr catheter ([id number]) was advanced over the wire and used for Procedure. 9:00:00 Radial Cocktail (Verapamil 2mg/Nitro 400mcg/Heparin 1500units) 1 syringe I.A. was administered by Aakash Templeton MD; for vasodilation; Verbal order read back and verified. 9:00:29 LV gram done using CHOPRA 9:01:04 Injector settings: Ml/sec: 5, Volume: 15, 9:01:35 EF : 60 % 9:01:47 Versed 1 mg I.V. was administered by Gianna Patel RN; for sedation; Verbal order read back and verified. 9:01:51 Fentanyl 50 mcg I.V. was administered by Gianna Patel RN; for sedation; Verbal order read back and verified. 9:02:42 RCA angiography performed. 9:03:46 LCA angiography performed. 9:04:00 Catheter exchanged over wire. 9:05:26 INFLATOR Merit BasixCompak (NY3600) opened to sterile field. 9:05:27 [employer] Verrata Plus pressure wire (10134E) opened to sterile field. 9:05:33 GUIDE 6FR EBU 3.0 catheter ([id number]) opened to sterile field. 9:05:40 6 Fr EBU 3 guide catheter was inserted over the wire 9:06:45 FFR/IFR wire advanced. 9:07:24 Wire advanced across lesion. 9:07:29 mLAD lesion measured at .83 with IFR 9:07:39 Pre PCI Site: [place] mLAD has 70% stenosis. 9:08:01 Heparin Bolus 4000 units I.V. was administered by Gianna Patel RN; for anticoagulation; Verbal order read back and verified. 9:09:29 Integrilin (Bolus 2mg/ml) 6.2 ml I.V. was administered by Gianna Patel RN; for antiplatelet therapy; wasted 3.8 ml of vial Verbal order read back and verified. 9:09:48 Place stent Inflation Number: 1 A COBRA RX 3.5 X 08 Stent was prepped and advanced across the Prox LAD . The stent was deployed at 17 JARRET for 0:00 (min:sec) . 9:10:06 Stent catheter was removed intact over wire. 9:11:22 Place stent Inflation Number: 2 A COBRA RX 3.5 X 12 Stent was prepped and advanced across the Prox LAD . The stent was deployed at 13 JARRET for 0:00 (min:sec) . 9:11:35 Stent catheter was removed intact over wire. 9::58 Wire removed. 9::58 Guide catheter removed. 9:12:09 ZEPHYR REGULAR TR BAND (527111) opened to sterile field. 9:12:12 Procedure ended.(Physican Out) 9:13:32 Sheath removed intact; hemostasis achieved with Mechanical Compression to the Right Radial artery. 9:13:37 Fluoroscopy time 04.20 minutes. 9:13:41 Fluoroscopy dose: 677 mGy 9:13:41 Flurop Dose total: 677 9:13:48 Dose Area Product 40126 mGy/cm. 9:14:18 Contrast amount:Isovue 300 105ml. 9:14:21 Maximum allowable dose exceeded? No. 9:14:22 Sharps counted by scrub and verified by R.N. 9:18:03 [place] band inflated with 8cc of air. 9:18:08 Post-procedure physical assessment completed. ASA score P 3 - A patient with severe systemic disease as per Aakash Templeton MD. 9:18:11 Post procedure rhythm: sinus rhythm 9:18:16 Estimated blood loss: 10 ml 9:18:18 Post procedure instruction explained to patient.Patient verbalizes understanding. 9:18:18 Patient needs reinforcement of post procedure teaching. 9:18:24 Plavix 600 mg P.O. was administered by Gianna Patel RN; for antiplatelet therapy; Verbal order read back and verified. 9:19:01 Procedure type changed to Cath procedure, Diagnostic procedure, LHC, [facility] w/Coronaries, Sedation Charges, Moderate Sedation up to 15 minutes, PCI procedure, Coronary Stent, Coronary Stent Initial 9:19:25 Procedure and supply charges have been captured, reviewed, submitted and are correct. 9:19:28 Procedure Complication : No complications 9:19:30 Vital chart was stopped 9:19:33 [facility] Findings: MVD- PCI performed (see procedure note) 9:19:36 ACT drawn and resulted at 294 seconds. (normal therapeutic range 180-240 seconds). 9:19:44 Operative report dictated upon procedure completion. 9:19:48 See physician's report for complete and final results. 9:19:51 Report given to Med 3 9:20:01 Patient transfered to [facility] 3 with Bed. 9:20:02 Procedure ended. 9:20:02 Full Disclosure recording stopped 9:20:11 ACC-PCI Only Patient was given prescriptions, or instructed by Gianna Patel RN to start/continue the following medications upon discharge: Plavix 9:20:13 End room use (Document Last) Intervention Summary Intervention Notes Time ActionType Lesion and Equipment Action# Pressure Duration Attributes Used 9:09:48 Place stent Prox LAD COBRA RX 1 17 00:00 3.5 X 08 Stent 9:11:22 Place stent Prox LAD COBRA RX 2 13 00:00 3.5 X 12 Stent Device Usage Item Name Manufacture Quantity Catalog Hospital Part Current Minimal Lot# / Number Charge Number Stock Stock Serial# Code ACIST Syringe Acist 1 79231 889165 491862 [id number] 20 (33123) Medical Systems Inc Medline Cath Medline 1 [id number] 970025 60920 185200 5 Pack ([id number]) ACIST Hand Acist 1 60550 887770 127899 018174 5 Control Medical (47009) Systems Inc Bag Decanter Microtek 1 2002S 499080 54846 321794 5 (2002S) Medical Inc. ACIST Manifold Acist 1 79339 050366 889121 938088 5 (62032) Medical Systems Inc Tegaderm 4 x 4 3M 1 1626W 567190 747458 398706 5 (1626W) MBrace Wrist Advanced 1 140-0250-00 974372 88679 992531 5 Support Vascular ([id number]) Dynamics EMERALD Guide Cardinal 1 502-455 310299 929404 965313 5 Wire (502-455) Health SHEATH 6FR Cardinal 1 6129734 433132 6109549 522270 5 RAIN (9676994) Health DIAGNOSTIC Terumo 1 40-4483 439054 199274 615627 5 [place] 110cm 5 Fr catheter (691671) INFLATOR Merit Merit 1 JF2427 180479 882843 758235 15 [facility] Medical (ZB9382) [place] 1 66597U 971626 237311694 519552 5 Verrata Plus pressure wire (49289L) GUIDE 6FR EBU Medtronic 1 [id number] 632933 05729 696379 0 3.0 catheter ([id number]) COBRA RX 3.5 X Celonova 1 776869 577694906 7595310 9 [id number] 08 stent Biosciences () COBRA RX 3.5 X Celonova 1 723288 [id number] 886285 8 [id number] 12 stent Biosciences () ZEPHYR REGULAR Cardinal 1 552416 414121 6679391 248883 5 Xbio Systems (885381) Signature Audit [place] Stage Time Signature Unsigned Intra-Procedure 10/05/2019 Lina Israel 9:22:14 AM RT(R) Intra-Procedure 10/05/2019 Gianna Patel RN 9:22:36 AM Intra-Procedure 10/05/2019 Aakash Templeton 9:23:09 AM [id number] [place] [address]
[~2019-10-01 21:30] MED LIST changes: -BYSTOLIC20 MG PO; -MUCINEX DM ER1 EAC1 PO; -NORVASC5 MG PO; -PLAVIX75 MG PO; -SINGULAIR10 MG PO; -VALIUM 2 MG TAB2 MG PO
[2019-10-01 22:05] LABS: BASOPHILS 0.4 % (0-2); EOSINOPHILS 1.7 % (0-7); HEMATOCRIT 37.6 % (36.0-48.0); HEMOGLOBIN 12.3 g/dL (12-16); IMMATURE GRANULOCYTES 0.4 % (0-5); MCH 31.1 pg (26.0-34.0); MCHC 32.7 g/dL (31.0-37.0); MCV 94.9 fL (80.0-100.0); MEAN PLATELET VOLUME 9.4 fL (7.4-10.4); MONOCYTES 8.9 % (2-11); NEUTROPHILS 64.6 % (40-80); PLATELET COUNT 268 10x3/uL (130-400); RBC 3.96 10x6/uL (4.00-5.40); RDW 13.4 % (11.5-14.5); WBC 14.3 10x3/uL (4.8-10.8)
[2019-10-01 22:15] LABS: APTT 29.4 SECONDS (22.8-39.4); INR 0.95 (0.85-1.17); PROTIME 12.2 SECONDS (11.6-15.0)
[2019-10-01 22:16] LABS: D-DIMER-QUANTITATIVE 0.72 ug/mLFEU (0.20-0.54)
[2019-10-01 22:31] LABS: ALKALINE PHOSPHATASE 110 U/L (46-116); ALT (SGPT) 33 U/L (10-68); BILIRUBIN - TOTAL 0.27 mg/dL (0.2-1.3); CALC OSMOLALITY 281 mosm/kg (275-300); CALCIUM 8.8 mg/dL (8.5-10.1); CARBON DIOXIDE 26.2 mmol/L (21.0-32.0); CHLORIDE - SERUM 104 mmol/L (98-107); CKMB 1.2 U/L (0.0-3.6); CREATINE KINASE 48 UL (21-215); CREATININE - SERUM 0.9 mg/dL (0.6-1.3); GLUCOSE 128 mg/dL (74-106); PRO BNP 153 pg/mL (0-125); SODIUM 141 mmol/L (136-145); UREA NITROGEN 9 mg/dL (7-18); eGFR NON AFRICAN AMERICAN 68 mL/min (90-120)
[2019-10-01 22:32] LABS: TROPONIN-I < 0.017 ng/mL (0.000-0.060)
[2019-10-01 22:34] LABS: POTASSIUM - SERUM 2.8 mmol/L (3.5-5.1)
[2019-10-02 00:13] LABS: APPEARANCE CLEAR (CLEAR); BILIRUBIN NEGATIVE (NEGATIVE); COLOR YELLOW (YELLOW); GLUCOSE NEGATIVE (NEGATIVE); KETONE NEGATIVE (NEGATIVE); NITRITE NEGATIVE (NEGATIVE); PROTEIN NEGATIVE (NEGATIVE); UROBILINOGEN NORMAL (NORMAL)
[2019-10-02 00:47] VITALS: BP 131/66
--- NOTE | 2019-10-02 01:35 | NUR ---
RECEIVED FROM ER, A&O, PT STATES SHE HAS NOT BEEN ABLE TO GET HOME MEDS, BECAUSES OF LIVING CONDTIONS, ASKING FOR SOMETHING TO EAT, PROVIDED A SANDWICH AND DRINK, IV-LAC, BED IS LOW, SRX2, CALL LIGHT IN REACH, WILL CONTINUE PLAN OF CARE
[2019-10-02 02:26] VITALS: BP 142/82; BMI 26.9
[2019-10-02 04:00] VITALS: BP 142/82
[2019-10-02 09:50] LABS: CALCIUM 8.5 mg/dL (8.5-10.1); CARBON DIOXIDE 23.3 mmol/L (21.0-32.0); CREATININE - SERUM 1.1 mg/dL (0.6-1.3); MAGNESIUM - SERUM 1.6 mg/dL (1.8-2.4)
[2019-10-02 09:57] LABS: POTASSIUM - SERUM 3.3 mmol/L (3.5-5.1)
[2019-10-02 10:00] LABS: BASOPHILS 0.1 % (0-2); EOSINOPHILS 0.1 % (0-7); HEMATOCRIT 34.6 % (36.0-48.0); HEMOGLOBIN 10.9 g/dL (12-16); IMMATURE GRANULOCYTES 0.6 % (0-5); MCH 30.4 pg (26.0-34.0); MCHC 31.5 g/dL (31.0-37.0); MCV 96.4 fL (80.0-100.0); MEAN PLATELET VOLUME 9.6 fL (7.4-10.4); MONOCYTES 0.3 % (2-11); NEUTROPHILS 82.9 % (40-80); PLATELET COUNT 266 10x3/uL (130-400); RBC 3.59 10x6/uL (4.00-5.40); RDW 13.5 % (11.5-14.5)
[2019-10-02 10:08] LABS: WBC 7.1 10x3/uL (4.8-10.8)
[2019-10-02 10:12] VITALS: BP 137/87
[2019-10-02 14:00] VITALS: Ht 162.6 cm; Wt 70.8 kg
[2019-10-02 15:36] LABS: UDS - AMPHET NEGATIVE QUAL (NEGATIVE); UDS - BARB NEGATIVE QUAL (NEGATIVE); UDS - BENZO POSITIVE QUAL (NEGATIVE); UDS - COCAINE NEGATIVE QUAL (NEGATIVE); UDS - OPIATE NEGATIVE QUAL (NEGATIVE); UDS - PCP NEGATIVE QUAL (NEGATIVE); UDS - THC NEGATIVE QUAL (NEGATIVE)
[2019-10-02 19:36] VITALS: BP 116/74
--- NOTE | 2019-10-02 20:20 | NUR ---
PATIENT RESTING IN BED WITH HOB ELEVATED AND WATCHING TV. CALM AND COOPERATIVE WITH CARE AND ASSESSMENT. PATIENT COMLAINING OF PAIN RATED 7/10. WILL FOLLOW UP WITH MORPHINE. NO FURTHER NEEDS AT THIS TIME. BED IN LOWEST POSITION. SIDE RAILS UP. CALL LIGHT IN REACH. WILL CONTINUE TO MONITOR.
[2019-10-03 00:16] VITALS: BP 112/63
--- NOTE | 2019-10-03 03:55 | NUR ---
PATIENT RESTING IN BED WITH EYES CLOSED. NO SIGNS OF DISTRESS. BED IN LOWEST POSITION. SIDE RAILS UP. CALL LIGHT IN REACH. WILL CONTINUE TO MONITOR.
[2019-10-03 05:55] VITALS: BP 82/48
[2019-10-03 06:28] LABS: BASOPHILS 0.1 % (0-2); EOSINOPHILS 0 % (0-7); HEMATOCRIT 31.5 % (36.0-48.0); HEMOGLOBIN 9.9 g/dL (12-16); IMMATURE GRANULOCYTES 0.4 % (0-5); LYMPHOCYTES 22.1 % (15-50); MCH 30.7 pg (26.0-34.0); MCHC 31.4 g/dL (31.0-37.0); MCV 97.5 fL (80.0-100.0); MEAN PLATELET VOLUME 9.9 fL (7.4-10.4); MONOCYTES 8.3 % (2-11); NEUTROPHILS 69.1 % (40-80); PLATELET COUNT 243 10x3/uL (130-400); RBC 3.23 10x6/uL (4.00-5.40); RDW 13.7 % (11.5-14.5)
[2019-10-03 06:49] LABS: ALBUMIN 2.4 g/dL (3.4-5.0); ALKALINE PHOSPHATASE 74 U/L (46-116); BILIRUBIN - TOTAL 0.13 mg/dL (0.2-1.3); CALCIUM 8.8 mg/dL (8.5-10.1); CARBON DIOXIDE 26.1 mmol/L (21.0-32.0); CHLORIDE - SERUM 109 mmol/L (98-107); PROTEIN - SERUM 5.7 g/dL (6.4-8.2); SODIUM 142 mmol/L (136-145); TROPONIN-I < 0.017 ng/mL (0.000-0.060); eGFR NON AFRICAN AMERICAN 60 mL/min (90-120)
[2019-10-03 06:52] LABS: ALT (SGPT) 21 U/L (10-68); CALC OSMOLALITY 285 mosm/kg (275-300); GLUCOSE 109 mg/dL (74-106); POTASSIUM - SERUM 4.7 mmol/L (3.5-5.1); UREA NITROGEN 17 mg/dL (7-18)
[2019-10-03 07:01] LABS: WBC 14.2 10x3/uL (4.8-10.8)
--- NOTE | 2019-10-03 07:29 | NUR ---
PT RESTING IN BED WITH EYES CLOSED, NO S/S OF DISTRESS NOTED AT THIS TIME. IV LOCATED TO LEFT FA CURRENTLY RUNNING AT [facility]. WILL CONT TO MONITOR.
[2019-10-03 08:01] VITALS: BP 94/54
[2019-10-03 09:31] LABS: % SATURATION 63 % (15-55); IRON 133 ug/dl (35-150); TOTAL IRON BIND CAPACITY 208 ug/dl (260-445); UNSAT IRON BIND CAPACITY 75 ug/dl (150-375)
[2019-10-03 12:23] VITALS: BP 121/72
[2019-10-03 16:26] VITALS: BP 127/75
--- NOTE | 2019-10-03 16:52 | MORECARE ---
CASE MANAGEMENT DISCHARGE SUMMARY PATIENT: NIELS HENSLEY MUKUL UNIT: [id number] ADM DATE: 10/02/19 AGE: 58 : 60 SEX: F ROOM/BED: D.1209 AUTHOR: KUNAL KELLER PHYSICIAN: REFERRING PHYSICIAN: TOM DC MD DATE OF SERVICE: 10/03/19 Discharge Plan Patient Name: NIELS HENSLEY Facility: [facility]:[place] : 1960 Planned Disposition: Anticipated Discharge Date: Discharge Date: Expected LOS: Initial Reviewer: [email or web address] Initial Review Date: 10/03/2019 Generated: 10/03/19 5:52 pm DCPIA - Discharge Planning Initial Assessment Updated by [email or web address]: Sara Umanzor on 10/03/19 4:45 pm * Is the patient Alert and Oriented? Yes * How many steps to enter\exit or inside your home? ramp * PCP CRISTINO * Pharmacy [facility] * Preadmission Environment Home with Family * ADLs Independent * Other Equipment HOME / PORTABLE 02 & NEBULIZER - [employer] * List name and contact numbers for known caregivers / representatives who currently or will assist patient after discharge: FARHAD BENNETT - [place]- [phone] * Verbal permission to speak to the caregivers and representatives has been obtained from the patient. No * Community resources currently utilized None * Additional services required to return to the preadmission environment? No * Can the patient safely return to the preadmission environment? Yes * Has this patient been hospitalized within the prior 30 days at any hospital? No Patient Name: NIELS HENSLEY Page 47622 at 1652 All edits/amendments must be made on the electronic document DICTATION DATE: 10/03/191651 RN SHIFT MGR: JOSÉ MIGUEL 10/03/191651 RPT#: [id number] DC DATE: STATUS: ADM IN [facility] [address] [place] [address] END OF REPORT
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
[2019-10-03 20:01] VITALS: BP 102/60
--- NOTE | 2019-10-03 20:05 | NUR ---
EVENING ROUNDS COMPLETED. VSS, AAOX4, NO S/S OF DISTRESS. PT DENIES ANY NEED FOR PAIN AT THIS TIME. DIET SODA PROVIDED PER PT'S REQUEST. PT DENIES ANY FURTHER NEEDS AT THIS TIME. WILL CPOC.
--- NOTE | 2019-10-03 20:24 | NUR ---
PT OUT FOR CT SCAN AT THIS TIME.
--- NOTE | 2019-10-03 23:29 | NUR ---
I have reviewed this patient and I concur with the Shift Assessment completed by the Licensed Practical Nurse today this shift.
[2019-10-04 00:25] VITALS: BP 113/71
[2019-10-04 06:00] VITALS: BP 120/87
[2019-10-04 07:49] VITALS: BP 121/83
[2019-10-04] MEDS ORDERED: BYSTOLIC20 MG PO (09:09)
--- NOTE | 2019-10-04 09:18 | NUR ---
CALLED SALES ENABLEMENT SPECIALIST AND DR. PARKER STATES THAT HE IS OK WITH PT DISCHARGING HOME TODAY.
--- NOTE | 2019-10-04 09:50 | NUR ---
I STATED TO PT SHE IS GETTING DISCHARGED HOME AND PT STATES TO ME THAT SHE IS HOMELESS AND HAS NO WHERE TO GO AND ASKED ME WHERE THE BOG CUTTER IS SHE SPOKE WITH YESTERDAY. I CALLED AND SPOKE WITH ZANE VELASCOINDUSTRIAL LOCOMOTIVE OPERATOR AND SHE STATES SHE IS WHO PT IS TALKING ABOUT. SHE ALSO STATES THE ONLY THING SHE KNOWS TO DO IS TO GIVE PT LIST OF HOMELESS SHELTERS AND SHE STATED SHE WAS GOING TO SPEAK ABOUT PT IN HER 1000 MEETING TO SEE WHAT SHE SHOULD DO WITH PT. I VERBALIZED UNDERSTANDING AND STATED TO HER I WILL WAIT TO HEAR FROM HER AFTER HER MEETING.
--- NOTE | 2019-10-04 10:08 | NUR ---
PT STATES SHE NEEDS [facility] UPDRAFT TREATMENT CALLED IN. SPOKE WITH JAZZMINE SMYTH AND HSE STATES THAT I(THIS NURSE) CAN CALL IT IN.
--- NOTE | 2019-10-04 11:37 | NUR ---
I have reviewed this patient and I concur with the Shift Assessment completed by the Licensed Practical Nurse today this shift.
--- NOTE | 2019-10-04 11:40 | NUR ---
DIRECTOR SUPPLY CHAIN GAVE HER A LIST OF HOMELESS SHLETERS.
--- NOTE | 2019-10-04 14:08 | EC ---
PATIENT:NIELS HENSLEY DATE OF SERVICE: 10/02/19 SEX: F MEDICAL RECORD: [id number] DATE OF : 60 LOCATION:D.M3 D.120 AGE OF PATIENT: 58 ADMISSION DATE: 10/02/19 REFERRING PHYSICIAN: INTERPRETING PHYSICIAN: NAZ TEMPLETON MD ECHOCARDIOGRAM REPORT ECHO CHARGES 4 ECHO COMPLETE Date: 10/02/19 CLINICAL DIAGNOSIS: CHF ECHOCARDIOGRAPHIC MEASUREMENTS (adult normal given) AC root (d.<3.7cm) 2.7 cm LV Septum d (<1.2 cm> 0.8 cm Valve Excursion 1.7 cm LV Septum (systole) 1.1 cm Left Atria (s.<4.0cm> 2.9 cm LVPW d(<1.2cm) 1.0 cm RV (d.<2.3cm) 2.7 cm LVPW (sytole) 1.1 cm LV diastole(<5.6CM) 4.6 cm MV E-F(>70mm/sec) cm LV systole 3.4 cm LVOT Diameter 1.9 cm MV exc.(>10mm) cm Est.ejection fraction (50-75%) % DOPPLER: LVIT cm/sec A 154 cm/sec E 92 cm/sec LA cm/sec RVSP 28.0 mmHg LVOT 112 cm/sec AOP1/2T m/s Asc. Ao 133 cm/sec RVOT 68 cm/sec RA cm/sec PA 98 cm/sec AV Gradient Peak 7.0 mmHg AV Mean 4.1 mmHg AV Area 2.3 cm MV Gradient Peak 13.4 mmHg MV Mean 5.0 mmHg MV Area cm COMMENTS: Settlement Technician: Edwin [facility] Marine Meteorologist: 1 Dr. Templeton TAPE# PACS Pericardial Effusion N DATE OF SERVICE: FINDINGS: 1. Left ventricular chamber size is within normal limits. Left ventricular systolic function is normal at 60%. 2. Left atrium, right atrium, and right ventricular chamber sizes are within normal limits. 3. Valvular structures have normal structure and motion. 4. Doppler interrogation reveals no significant valvular insufficiency or stenosis and pulmonary systolic pressure is normal estimated at 28 mmHg. ECHOCARDIOGRAM REPORT [id number] NIELS HENSLEY 5. No evidence of pericardial effusion or left ventricular thrombus. TRANSINT:[id number] Voice Confirmation ID: [id number] DOCUMENT ID: [id number] NAZ TEMPLETON MD at 1408 CC: [id number] DICTATION DATE: 10/02/191751 FIRE CHIEF DEPUTY: 10/03/19 0146 ADM IN [facility] [address] [id number]
--- NOTE | 2019-10-04 14:08 | CN ---
PATIENT NAME:NIELS TIMMONS MEDICAL RECORD: [id number] : 60 LOCATION:D.M3 D.1209 ADMIT DATE: 10/02/19 ACCOUNT: [id number] CONSULTING PHYSICIAN: NAZ PARKER MD REFERRING PHYSICIAN: TOM DC MD DATE OF CONSULTATION: 10/02/2019 CARDIOLOGY CONSULTATION DIAGNOSES: 1. Chest pain compatible with angina. 2. Chronic obstructive pulmonary disease. 3. Bronchitis. 4. Smoking. 5. Family history of coronary artery disease. 6. Tachycardia. 7. Palpitations. 8. Shortness of breath, dyspnea on exertion. HISTORY OF PRESENT ILLNESS: Mrs. Timmons presents with shortness of breath, dyspnea on exertion and chest tightness. The chest pain she describes actually very typical for angina, it is a tightness sensation like a band-like sensation and pressure sensation around the anterior chest. It has been getting worse. She had severe episodes at rest. She has continued to have the episodes of chest discomfort. Her troponin is normal. Her EKG is sinus tachycardia. She is being treated for COPD exacerbation as well as bronchitis. PHYSICAL EXAMINATION: CONSTITUTIONAL/GENERAL APPEARANCE: Well nourished, well developed, appears stated age. EYES: Lids and conjunctivae noninjected. No discharge. No pallor. ENT: Lips within normal limit. No cyanosis. No pallor. NECK: Carotid arteries, bilateral normal upstroke. No bruits. No thrills. No jugular venous pressure or distention. CERVICAL LYMPH NODES: Nontender. Nonenlarged. THYROID: Not enlarged. No nodules. CARDIOVASCULAR: Precordial exam, nondisplaced. No heaves or pericardial thrills. Rate and rhythm, regular. Heart sounds, normal S1, normal S2. No S3, no gallop, no rub. Systolic murmur, not heard. Diastolic murmur, not heard. RESPIRATORY: Respiratory effort, unlabored. Normal curvature. No thoracic deformity. No chest wall tenderness. Percussion, resonant. Auscultation, clear. No wheezes, no rales, no rhonchi. ABDOMEN: Soft, nondistended, nontender. No abdominal pain, no vomiting and normal appetite. MUSCULOSKELETAL: No joint tenderness, normal gait, normal tone. SKIN: Warm and dry. OVERALL IMPRESSION: Chest pain compatible with angina in an escalating fashion with the risk factors of family history and smoking. We will proceed with risk stratification with stress testing and Cardiolite imaging. At this time, we will also start beta blockade in the form of Bystolic for the palpitations and tachycardia. TRANSINT:[id number] Voice Confirmation ID: [id number] DOCUMENT ID: [id number] CONSULT REPORT [id number] NIELS TIMMONS JEFFREY MD at 1408 CC: [id number] DICTATION DATE: 10/02/19 1304 CAMP ATTENDANT: 10/02/19 1411 ADM IN [facility] [address] [id number]
[2019-10-04 15:55] VITALS: BP 138/90
[2019-10-04 19:08] VITALS: BP 159/92
--- NOTE | 2019-10-04 21:04 | NUR ---
PT STATES SHE IS FEELING 'SHAKY' AND THAT SHE IS HURTING ON HER BACK WITH A PAIN OF 10/10. ON ASSESSMENT OF VS, BP 127/78, HR 84, SPO2 93 RA, RR 18. FSBS 132. EDUCATE PT ON NEED TO RELAX AND TAKE DEEP BREATH. MORPHINE ADMINISTERED FOR PAIN. WILL CTM.
[2019-10-05] VITALS: BP 127/75
[2019-10-05 04:26] VITALS: BP 117/72
--- NOTE | 2019-10-05 07:10 | NUR ---
REPORT RECEIVED FROM AIR BREAKER OPERATOR AND PATIENT CARE ASSUMED. PATIENT LAYING IN BED ON RT SIDE WITH EYES CLOSED AND BREATHING. PATIENT IS STABLE AND VSS. PATIENT DENIES ANY NEEDS OR PAIN. PATIENT IS NPO AWAITING HEART CATH. SR UP X 2 BED IN LOW POSITION AND CALL LIGHT IN REACH.
[2019-10-05 07:30] VITALS: BP 132/78
--- NOTE | 2019-10-05 08:00 | NUR ---
PHONE CALL RECEIVED FROM RUBBER THREAD SPOOLER TEAM. ORDERED TO GIVE PRE OP. PRE OP ADMINISTERED PER MAR. PATIENT IS STABLE AND VSS. SR UP X 2 BED IN LOW POSITION AND CALL LIGHT IN REACH.
--- NOTE | 2019-10-05 08:45 | NUR ---
PATIENT IS STABLE AND VSS. PATIENT DENIES ANY NEEDS OR PAIN. PATIENT TO TRANSPORTATION ASSOCIATE VIA HOSPITAL BED AND TRANSPORTATION ASSOCIATE TEAM.
--- NOTE | 2019-10-05 09:05 | NUR ---
NUTRITION F/U PT TOLERATING REG DIET WITH GOOD PO INTAKE UNTIL CURRENT NPO STATUS FOR LHC TODAY. WILL PROVIDE DIET WHEN RESUMED, MONITOR PO INTAKE. RD FOLLOWING
--- NOTE | 2019-10-05 09:30 | NUR ---
PATIENT RETURNED FROM RUFFLING MACHINE OPERATOR TEAM VIA [facility] BED AND RUFFLING MACHINE OPERATOR TEAM. PATIENT IS AWAKE, ALERT AND ORIENTED X4. PATIENT IS STABLE AND VSS. TR BAND TO RT WRIST INTACT. NO BLEEDING , BRUISING OR HEMATOMA NOTED. FREQUENT VITALS IN PLACE. PROVIDED PATIENT WITH SODA PER REQUEST. PUT IN ORDER FOR WEST AND DR MORALES REQUESTED. WILL CONTINUE TO MONITOR. SR UP X 2 BED IN LOW POSITION AND CALL LIGHT IN REACH.
--- NOTE | 2019-10-05 10:20 | NUR ---
PATIENT SITTING UP IN BED EATING SANDWICH. PATIENT IS STABLE AND VSS. PATIENT DENIES ANY NEEDS OR PAIN. RT WRIST TR BAND INTACT. NO SIGNS OR BLEEDING , BRUISING OR HEMATOMA. 4CCS OF AIR REMOVED. NO SIGNS OF BLEEDING. WILL CONTINUE TO MONITOR. SR UP X 2 BED IN LOW POSITION AND CALL LIGHT IN REACH.
[2019-10-05 10:28] LABS: HEMATOCRIT 33.6 % (36.0-48.0); HEMOGLOBIN 10.6 g/dL (12-16); MCH 30.2 pg (26.0-34.0); MCHC 31.5 g/dL (31.0-37.0); MCV 95.7 fL (80.0-100.0); MEAN PLATELET VOLUME 9.7 fL (7.4-10.4); PLATELET COUNT 254 10x3/uL (130-400); RBC 3.51 10x6/uL (4.00-5.40); RDW 13.7 % (11.5-14.5); WBC 11.8 10x3/uL (4.8-10.8)
[2019-10-05 10:32] LABS: ANION GAP 10.3 mmol/L (8-16); CALCIUM 7.9 mg/dL (8.5-10.1); CARBON DIOXIDE 29.4 mmol/L (21.0-32.0); CREATININE - SERUM 0.9 mg/dL (0.6-1.3); POTASSIUM - SERUM 3.7 mmol/L (3.5-5.1)
[2019-10-05 10:45] LABS: EOSINOPHILS 4 % (0-7); LYMPHOCYTES 39 % (15-50); MONOCYTES 1 % (2-11); NEUTROPHILS 55 % (40-80); PLATELET ESTIMATE NORMAL
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
--- NOTE | 2019-10-05 12:49 | ST ---
PATIENT:NIELS HENSLEY MUKUL MEDICAL RECORD: [id number] SEX: F LOCATION:[address] ORDER #: ADMISSION DATE: 10/02/19 AGE OF PATIENT: 58 REFERRING PHYSICIAN: INTERPRETING PHYSICIAN: NAZ PARKER MD DATE OF SERVICE: 10/03/2019 Nuclear Stress Test INDICATIONS: Chest pain compatible with angina. She was exercised on standard Lexiscan protocol with 31.5 mCi of sestamibi injected at peak stress and 23 mCi used previously for rest images. FINDINGS: Gated SPECT reveals preserved ejection fraction at 62% with good wall motioning and thickening and brightening throughout all segments. SPECT IMAGING: Cardiolite was used as myocardial perfusion agent. There is mild reversibility anteriorly, which includes basal, mid, and apical anterior segments. The amount of myocardium involved is mild to moderate. OVERALL IMPRESSION: 1. This is an abnormal nuclear stress test with reversible ischemia anteriorly. 2. Gated SPECT reveals preserved ejection fraction at 62%. In this patient with ongoing symptomatology, the current scan does suggest presence of hemodynamically significant coronary artery disease; however, the reversibility is very mild. At this time continue medical management of the coronary artery disease; if symptomatology persist, consider repeat coronary angiography. TRANSINT:[id number] Voice Confirmation ID: [id number] DOCUMENT ID: [id number] NAZ PARKER MD at 1249 CC: [id number] DICTATION DATE: 10/04/19 1524 DOCUMENT MANAGEMENT CONSULTANT: 10/05/19 0416 ADM IN [id number] [place] [address]
--- NOTE | 2019-10-05 12:49 | OP ---
PATIENT NAME: NIELS HENSLEY MEDICAL RECORD: [id number] :60 LOCATION:D.M3 D.1209 ADMISSION DATE:10/02/19 SURGEON: NAZ PARKER MD DATE OF OPERATION: 10/05/2019 PROCEDURES: 1. PTCA stent LAD. 2. IFR. 3. Left heart catheterization. 4. Selective coronary angiography. 5. Left ventriculogram. INDICATION: Angina and coronary artery disease. PROCEDURE IN DETAIL: After informed consent was obtained and after a detailed description of risks, benefits as well as alternative therapies, the patient elected to proceed with angiogram and angioplasty. The right radial area was prepped and draped in normal sterile fashion. Right radial artery was cannulated via modified Seldinger technique with placement of 6-Malaysian sheath. All catheters exchanged through this sheath. FINDINGS: Left ventriculogram was performed in standard 30-degree CHOPRA view, reveals good cardiac wall motion, ejection fraction is 60%. SELECTIVE CORONARY ANGIOGRAPHY: 1. Left main is with no significant angiographic disease. 2. Left anterior descending has 70% stenosis proximally. This correlates with perfusion defect of the nuclear stress test, as well IFR was abnormal at 0.83. 3. Left circumflex has moderate irregularities, but no flow-limiting stenosis. 4. Right coronary has moderate irregularities, but no flow-limiting and is atretic. PTCA STENT OF THE LAD: The stent used 3.0 x 8 mm Cobra and a 3.0 x 12 mm Cobra. Result was 0% residual stenosis. OVERALL IMPRESSION: Successful PTCA stent of the LAD going from 70% initial stenosis to 0% residual. TRANSINT:[id number] Voice Confirmation ID: [id number] DOCUMENT ID: [id number] NAZ PARKER MD at 1249 CC: [id number] DICTATION DATE: 10/05/19 1212 FLEXOGRAPHIC PRESS PLATE SETTER: 10/05/19 1221 ADM IN [id number] [place] [address]
--- NOTE | 2019-10-05 12:49 | PN ---
PATIENT:NIELS TIMMONS MEDICAL RECORD: [id number] LOCATION:D.M3 D.120 ADMISSION DATE: 10/02/19 PROGRESS NOTE DATE OF SERVICE: 10/04/2019 Mrs. Timmons continues to have episodes of chest pain and chest discomfort. She continues to be short of breath. She did undergo nuclear stress testing yesterday, which was not normal and revealed a perfusion defect anteriorly suggestive of reversible ischemia in the anterior distribution with her ongoing symptomatology despite maximal medical therapy. We will proceed with coronary angiography. TRANSINT:[id number] Voice Confirmation ID: [id number] DOCUMENT ID: [id number] NAZ PARKER MD at 1249 CC: [id number] DICTATION DATE: 10/04/19 1525 OB/GYN NURSE: 10/04/19 1722 ADM IN [address] [place] [address]
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
== END 2019-10-05 15:45 | disposition home or self-care (01) | DRG 248 ==
LOC: D.M3 → D.ER 21:30 → EDBD 21:30 → D.M3 10-02 00:50 → D.M2 10-02 00:50 → D.M3 10-02 07:01
PROVIDERS: Family Medicine; Internal Medicine Interventional Cardiology; ADMIT Internal Medicine Nephrology; ATTEND Internal Medicine Nephrology
PROC: 4A023N7 Measurement of Cardiac Sampling and Pressure, Left Heart, Percutaneous Approach (ICD-10-PCS; 2019-10-05)
PROC: B2111ZZ Fluoroscopy of Multiple Coronary Arteries using Low Osmolar Contrast (ICD-10-PCS; 2019-10-05)
PROC: B2151ZZ Fluoroscopy of Left Heart using Low Osmolar Contrast (ICD-10-PCS; 2019-10-05)
PROC: 02703EZ Dilation of Coronary Artery, One Artery with Two Intraluminal Devices, Percutaneous Approach (ICD-10-PCS; principal; 2019-10-05 08:20)
PROC: 4A033BC Measurement of Arterial Pressure, Coronary, Percutaneous Approach (ICD-10-PCS; 2019-10-05 08:20)
DX: I25.119 Atherosclerotic heart disease of native coronary artery with unspecified angina pectoris (principal); J18.9 Pneumonia, unspecified organism; J44.1 Chronic obstructive pulmonary disease with (acute) exacerbation; F17.213 Nicotine dependence, cigarettes, with withdrawal; J40 Bronchitis, not specified as acute or chronic; D64.9 Anemia, unspecified; E87.6 Hypokalemia; E83.42 Hypomagnesemia; I10 Essential (primary) hypertension; F31.9 Bipolar disorder, unspecified; Z91.19 Patient's noncompliance with other medical treatment and regimen

== ENCOUNTER 2019-10-07 13:22 | Emergency (ER) | payer MEDICARE ==
[~2019-10-07] VITALS: Ht 162.6 cm; Wt 70.9 kg
[~2019-10-07 13:22] MED LIST changes: +BYSTOLIC20 MG PO
[2019-10-07 13:25] VITALS: Ht 162.6 cm; Wt 70.9 kg
[2019-10-07 14:30] VITALS: BP 144/88
== END 2019-10-07 14:30 | disposition home or self-care (01) ==
LOC: D.ER 13:22
DX: Z71.1 Person with feared health complaint in whom no diagnosis is made (principal)

== ENCOUNTER 2019-10-17 10:13 | Inpatient (IN) | payer MEDICARE ==
[~2019-10-17] VITALS: Ht 152.4 cm; Wt 74.2 kg
[2019-10-17] VITALS (7 sets, daily range): BP systolic 134–167; BP diastolic 84–101; BMI 30.5
[2019-10-17] MEDS ORDERED: PLAVIX75 MG PO (10:27)
--- NOTE | 2019-10-17 10:37 | NUR ---
RT AT BS FOR NEB AND ABG'S
[2019-10-17 10:43] LABS: BASOPHILS 0.5 % (0-2); EOSINOPHILS 17.6 % (0-7); HEMATOCRIT 37.1 % (36.0-48.0); HEMOGLOBIN 12.4 g/dL (12-16); IMMATURE GRANULOCYTES 0.3 % (0-5); LYMPHOCYTES 25.9 % (15-50); MCH 31.3 pg (26.0-34.0); MCHC 33.4 g/dL (31.0-37.0); MCV 93.7 fL (80.0-100.0); MEAN PLATELET VOLUME 9.6 fL (7.4-10.4); MONOCYTES 5.5 % (2-11); NEUTROPHILS 50.2 % (40-80); PLATELET COUNT 270 10x3/uL (130-400); RBC 3.96 10x6/uL (4.00-5.40); RDW 13.5 % (11.5-14.5); WBC 12.5 10x3/uL (4.8-10.8)
[2019-10-17 10:53] LABS: CALC OSMOLALITY 279 mosm/kg (275-300); CALCIUM 9.2 mg/dL (8.5-10.1); CARBON DIOXIDE 23.3 mmol/L (21.0-32.0); CHLORIDE - SERUM 106 mmol/L (98-107); CREATININE - SERUM 0.8 mg/dL (0.6-1.3); GLUCOSE 112 mg/dL (74-106); POTASSIUM - SERUM 3.5 mmol/L (3.5-5.1); SODIUM 141 mmol/L (136-145); UREA NITROGEN 6 mg/dL (7-18); eGFR NON AFRICAN AMERICAN 78 mL/min (90-120)
[2019-10-17 10:54] LABS: APTT 27.6 SECONDS (22.8-39.4); INR 0.96 (0.85-1.17); PROTIME 12.3 SECONDS (11.6-15.0)
[2019-10-17 11:08] LABS: ALBUMIN 3.3 g/dL (3.4-5.0); ALKALINE PHOSPHATASE 91 U/L (46-116); ALT (SGPT) 25 U/L (10-68); BILIRUBIN - TOTAL 0.31 mg/dL (0.2-1.3); CKMB 1.4 U/L (0.0-3.6); CREATINE KINASE 58 UL (21-215); PRO BNP 487 pg/mL (0-125); PROTEIN - SERUM 7.5 g/dL (6.4-8.2); TROPONIN-I < 0.017 ng/mL (0.000-0.060)
--- NOTE | 2019-10-17 14:44 | NUR ---
ATTEMPTED TO CALL REPORT RN UNAVAILABLE
--- NOTE | 2019-10-17 15:13 | NUR ---
REPORT CALLED TO ROD HENRY
--- NOTE | 2019-10-17 15:18 | NUR ---
TRANSPORTED TO ROOM #2138, CONDITION STABLE
--- NOTE | 2019-10-17 15:38 | NUR ---
RECEIVED PT TO ROOM 2137 VIA WHEELCHAIR, PT ABLE TO AMBULATE FROM WHEELCHAIR TO BED WITH STEADY GATE. ORIENTED PT TO ROOM AND CALL LIGHT, WILL ASSESS PT AND START PLAN OF CARE.
[2019-10-17] MEDS ORDERED: VALIUM 2 MG TAB2 MG PO (15:41)
--- NOTE | 2019-10-17 16:47 | NUR ---
PAGED STAN MUNOZ, WAITING BROADCAST NEWS PRODUCER BACK.
--- NOTE | 2019-10-17 17:01 | NUR ---
RECEIVED CALL BACK FROM STAN MUNOZ APRN, INFORMED HER ABOUT PT'S BP BEING HIGH. ORDER TO START HER LISINOPRIL AND BYSTOLIC, GIVE DOSE NOW.
--- NOTE | 2019-10-17 17:50 | MORECARE ---
CASE MANAGEMENT DISCHARGE SUMMARY PATIENT: NIELS HENSLEY MUKUL UNIT: [id number] ADM DATE: 10/17/19 AGE: 58 : 60 SEX: F ROOM/BED: D.2139 AUTHOR: KUNAL KELLER PHYSICIAN: REFERRING PHYSICIAN: DENNISE MAK MD DATE OF SERVICE: 10/17/19 Discharge Plan Patient Name: NIELS HENSLEY Facility: [facility]:[place] : 1960 Planned Disposition: Other Type of Facility Anticipated Discharge Date: 10/20/19 Discharge Date: Expected LOS: 3 Initial Reviewer: [email or web address] Initial Review Date: 10/17/2019 Generated: 10/17/19 6:49 pm Patient Name: NIELS HENSLEY Page 37135 at 1750 All edits/amendments must be made on the electronic document DICTATION DATE: 10/17/191749 TOOL AND MACHINE MAINTAINER: JOSÉ MIGUEL 10/17/191749 RPT#: [id number] DC DATE: STATUS: ADM IN [facility] [address] [place] [address] END OF REPORT
--- NOTE | 2019-10-17 17:50 | NUR ---
INFORMED PT OF NEED FOR URINE SAMPLE. PROVIDED PT WITH HAT IN THE COMMODE AND COLLECTION CUP. ALSO EXPLAINED RATIONAL FOR SCDS, PT REFUSED TO WEAR SCDS AT THIS TIME, STATED THAT SHE IS UP AND DOWN.
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
[2019-10-17 18:59] LABS: CKMB 1.2 U/L (0.0-3.6); CREATINE KINASE 51 UL (21-215); TROPONIN-I < 0.017 ng/mL (0.000-0.060)
--- NOTE | 2019-10-17 19:28 | NUR ---
AWAKE AND ALERT LCTA SKIN WARM AND DRY BED IS LOW AND LOCKED CALL LIGHTY WITH PT
[2019-10-18] VITALS: BP 142/86
[2019-10-18 00:52] LABS: CKMB 1.2 U/L (0.0-3.6); CREATINE KINASE 52 UL (21-215); TROPONIN-I < 0.017 ng/mL (0.000-0.060)
--- NOTE | 2019-10-18 03:20 | NUR ---
I have reviewed this patient and I concur with the Shift Assessment completed by the Licensed Practical Nurse today this shift.
[2019-10-18 04:00] VITALS: BP 128/80
[2019-10-18 06:49] LABS: BASOPHILS 0.1 % (0-2); EOSINOPHILS 0 % (0-7); HEMOGLOBIN 11.3 g/dL (12-16); IMMATURE GRANULOCYTES 0.5 % (0-5); LYMPHOCYTES 15.7 % (15-50); MCH 30.6 pg (26.0-34.0); MCHC 32.3 g/dL (31.0-37.0); MCV 94.9 fL (80.0-100.0); MONOCYTES 1.2 % (2-11); NEUTROPHILS 82.5 % (40-80); PLATELET COUNT 286 10x3/uL (130-400); RBC 3.69 10x6/uL (4.00-5.40); RDW 13.5 % (11.5-14.5); WBC 10.3 10x3/uL (4.8-10.8)
[2019-10-18 07:27] LABS: ALBUMIN 2.7 g/dL (3.4-5.0); ALKALINE PHOSPHATASE 81 U/L (46-116); ALT (SGPT) 21 U/L (10-68); BILIRUBIN - TOTAL 0.19 mg/dL (0.2-1.3); CALCIUM 8.9 mg/dL (8.5-10.1); CARBON DIOXIDE 22.6 mmol/L (21.0-32.0); CHLORIDE - SERUM 108 mmol/L (98-107); CKMB 1.1 U/L (0.0-3.6); CREATINE KINASE 37 UL (21-215); CREATININE - SERUM 0.8 mg/dL (0.6-1.3); GLUCOSE 140 mg/dL (74-106); MAGNESIUM - SERUM 1.9 mg/dL (1.8-2.4); POTASSIUM - SERUM 3.9 mmol/L (3.5-5.1); PROTEIN - SERUM 6.4 g/dL (6.4-8.2); SODIUM 141 mmol/L (136-145); TROPONIN-I < 0.017 ng/mL (0.000-0.060); eGFR NON AFRICAN AMERICAN 78 mL/min (90-120)
[2019-10-18 07:29] LABS: CALC OSMOLALITY 283 mosm/kg (275-300); UREA NITROGEN 15 mg/dL (7-18)
[2019-10-18 09:55] VITALS: BP 141/74
[2019-10-18 10:04] LABS: APPEARANCE HAZY (CLEAR); BILIRUBIN NEGATIVE (NEGATIVE); COLOR YELLOW (YELLOW); GLUCOSE 100 mg/dL (NEGATIVE); KETONE SMALL mg/dL (NEGATIVE); NITRITE NEGATIVE (NEGATIVE); PROTEIN NEGATIVE (NEGATIVE); SPECIFIC GRAVITY 1.015 (1.005-1.020); UROBILINOGEN NORMAL (NORMAL)
[2019-10-18 13:34] VITALS: BP 123/55
--- NOTE | 2019-10-18 13:53 | NUR ---
PATIENT IS RESTING QUIETLY. DENIES ANY NEEDS AT THIS TIME.
[2019-10-18 15:14] VITALS: Ht 152.4 cm; Wt 74.2 kg
--- NOTE | 2019-10-18 16:02 | NUR ---
PATIENT IS ALERT AND AWAKE. SHE C/O DRY MOUTH. OFFERED HER ICE CHIPS AND ICE TEA. IV ANTIBIOTICS INFUSING ORDERED.
[2019-10-18 17:30] VITALS: BP 150/82
--- NOTE | 2019-10-18 19:10 | NUR ---
BEDSIDE REPORT RECEIVED FROM DAY SHIFT, PT CARE ASSUMED. INTRODUCED SELF AND WROTE NAME ON BOARD. PT SITTING UP IN BED, WATCHING TV, AAOX4. DENIES ANY NEEDS AT THIS TIME. BED IN LOWEST POSITION, SR X2, CALL LIGHT WITHIN REACH. WILL CONTINUE TO MONITOR.
[2019-10-18 20:00] VITALS: BP 171/88
[2019-10-19 04:00] VITALS: BP 144/84
[2019-10-19 05:53] LABS: BASOPHILS 0.1 % (0-2); EOSINOPHILS 0.1 % (0-7); HEMATOCRIT 32.6 % (36.0-48.0); HEMOGLOBIN 10.4 g/dL (12-16); IMMATURE GRANULOCYTES 0.8 % (0-5); LYMPHOCYTES 9.9 % (15-50); MCH 30.9 pg (26.0-34.0); MCHC 31.9 g/dL (31.0-37.0); MCV 96.7 fL (80.0-100.0); MEAN PLATELET VOLUME 9.4 fL (7.4-10.4); NEUTROPHILS 86.1 % (40-80); PLATELET COUNT 258 10x3/uL (130-400); RBC 3.37 10x6/uL (4.00-5.40); RDW 14.1 % (11.5-14.5)
[2019-10-19 05:58] LABS: WBC 17.3 10x3/uL (4.8-10.8)
[2019-10-19 06:14] LABS: ANION GAP 14.1 mmol/L (8-16); CALCIUM 8.5 mg/dL (8.5-10.1); CARBON DIOXIDE 21.9 mmol/L (21.0-32.0); MAGNESIUM - SERUM 1.7 mg/dL (1.8-2.4)
[2019-10-19 06:17] LABS: CREATININE - SERUM 1.1 mg/dL (0.6-1.3)
[2019-10-19 08:00] VITALS: BP 121/81
[2019-10-19 12:00] VITALS: BP 159/94
[2019-10-19 16:34] VITALS: BP 157/88
--- NOTE | 2019-10-19 17:31 | NUR ---
I have reviewed this patient and I concur with the Shift Assessment completed by the Licensed Practical Nurse today this shift.
--- NOTE | 2019-10-19 19:00 | NUR ---
EVENING ROUNDS COMPLETE. PT LAYING N BED. NO SIGNS OF DISTRESS. AAOX4. PT DENIES ANY NEEDS OR PAIN AT THIS TIME. CL IN REACH, BED IN LOWEST POSITON.
[2019-10-19 20:00] VITALS: BP 157/98
[2019-10-20] VITALS (7 sets, daily range): BP systolic 126–166; BP diastolic 76–101
[2019-10-20 06:55] LABS: ANION GAP 11.4 mmol/L (8-16); CALCIUM 8.4 mg/dL (8.5-10.1); MAGNESIUM - SERUM 2.1 mg/dL (1.8-2.4); PHOSPHOROUS 4.6 mg/dL (2.5-4.9); POTASSIUM - SERUM 4.4 mmol/L (3.5-5.1)
[2019-10-20 07:19] LABS: HEMATOCRIT 32.7 % (36.0-48.0); HEMOGLOBIN 10.9 g/dL (12-16); LYMPHOCYTES 13.9 % (15-50); MCH 31.5 pg (26.0-34.0); MCHC 33.3 g/dL (31.0-37.0); MEAN PLATELET VOLUME 9.3 fL (7.4-10.4); NEUTROPHILS 82.6 % (40-80); PLATELET COUNT 242 10x3/uL (130-400); RBC 3.46 10x6/uL (4.00-5.40); RDW 13.3 % (11.5-14.5)
[2019-10-20 07:22] LABS: MCV 94.5 fL (80.0-100.0); WBC 12.9 10x3/uL (4.8-10.8)
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
--- NOTE | 2019-10-20 14:54 | NUR ---
NUTRITION F/U PT TOLERATING AHA DIET, 75 TO 100% INTAKE RECENT MEALS. WILL CONTINUE TO PROVIDE DIET, MONITOR PO INTAKE. RD FOLLOWING
--- NOTE | 2019-10-20 15:11 | NUR ---
KAREN BELTRE AND STAN NOTIFIED OF PT B/P OF 160/101 AND ORDERS RECEIVED AND CARRIED OUT.
[2019-10-20] MEDS ORDERED: NORVASC5 MG PO (16:23)
[2019-10-20] MEDS ORDERED: SINGULAIR10 MG PO (16:24)
[2019-10-20] MEDS ORDERED: MUCINEX DM ER1 EAC1 PO (16:25)
[2019-10-20] MEDS ORDERED: ZITHROMAX500 MG PO (16:26)
[2019-10-20] MEDS ORDERED: OMNICEF300 MG PO (16:27)
[2019-10-20] MEDS ORDERED: PREDNISONE10 MG PO (16:27)
--- NOTE | 2019-10-20 18:23 | NUR ---
I HAVE REVIEWED THIS PATIENT AND I CONCUR WITH THE SHIFT ASSESSMENT COMPLETED BY THE BIAS CUTTER HELPER TODAY THIS SHIFT
--- NOTE | 2019-10-20 18:38 | NUR ---
SL INFILTRATED AND DC'D. NOT RESTARTED SINCE PT IS BEING DISCHARGED TOMORROW AM AND NO IV MEDS DUE.
--- NOTE | 2019-10-20 19:10 | NUR ---
BEDSIDE REPORT RECEIVED FROM DAY SHIFT, PT CARE ASSUMED. WROTE NAME ON BOARD. PT SITTING UP IN BED, WATCHING TV, AAOX4. DENIES ANY NEEDS AT THIS TIME. BED IN LOWEST POSITION, SR X1, CALL LIGHT WITHIN REACH. WILL CONTINUE TO MONITOR.
--- NOTE | 2019-10-21 04:04 | NUR ---
I have reviewed this patient and I concur with the Shift Assessment completed by the Licensed Practical Nurse today this shift.
[2019-10-21 04:30] VITALS: BP 141/93
[2019-10-21 06:06] LABS: HEMATOCRIT 34.4 % (36.0-48.0); HEMOGLOBIN 10.8 g/dL (12-16); MCH 30.5 pg (26.0-34.0); MCHC 31.4 g/dL (31.0-37.0); RBC 3.54 10x6/uL (4.00-5.40); RDW 14.2 % (11.5-14.5); WBC 12.4 10x3/uL (4.8-10.8)
[2019-10-21 06:07] LABS: BASOPHILS 0.1 % (0-2); EOSINOPHILS 0.3 % (0-7); IMMATURE GRANULOCYTES 2.4 % (0-5); LYMPHOCYTES 39.7 % (15-50); MCV 97.2 fL (80.0-100.0); MEAN PLATELET VOLUME 9.8 fL (7.4-10.4); MONOCYTES 8.6 % (2-11); NEUTROPHILS 48.9 % (40-80); PLATELET COUNT 248 10x3/uL (130-400)
[2019-10-21 06:12] LABS: ANION GAP 11.5 mmol/L (8-16); CARBON DIOXIDE 25.7 mmol/L (21.0-32.0); CREATININE - SERUM 1.1 mg/dL (0.6-1.3); MAGNESIUM - SERUM 2.4 mg/dL (1.8-2.4); PHOSPHOROUS 3.8 mg/dL (2.5-4.9); POTASSIUM - SERUM 4.2 mmol/L (3.5-5.1)
[2019-10-21 07:53] VITALS: BP 146/90
[2019-10-21 11:27] VITALS: BP 152/87
[2019-10-21 15:44] VITALS: BP 126/74
--- NOTE | 2019-10-21 16:44 | MORECARE ---
CASE MANAGEMENT DISCHARGE SUMMARY PATIENT: NIELS HENSLEY MUKUL UNIT: [id number] ADM DATE: 10/17/19 AGE: 58 : 60 SEX: F ROOM/BED: D.6078 AUTHOR: ARIANNA,DOC PHYSICIAN: REFERRING PHYSICIAN: DENNISE MAK MD DATE OF SERVICE: 10/21/19 Discharge Plan Patient Name: NIELS HENSLEY Facility: [facility]:[place] : 1960 Planned Disposition: Other Type of Facility Anticipated Discharge Date: 10/20/19 Discharge Date: Expected LOS: 3 Initial Reviewer: [id number] Initial Review Date: 10/17/2019 Generated: 10/21/19 5:44 pm Comments DCP- Discharge Planning Updated by [email or web address]: Juhi Arenas on 10/21/19 3:[address] Patient Name: NIELS HENSLEY Encounter No: [id number] : 1960 Primary Insurance: MEDICARE A & B Anticipated DC Date: 10-20-2019 Planned Disposition: Other Type of Facility External Planned Provider: : DCP follow-up note: Patient and family in agreement with discharge plan. No changes to plan. NEBULIZER HAS BEEN DELIVERED TO PATIENT. Case management will follow and assist as needed. Juhi Arenas DCP- Discharge Planning Updated by [id number]: Jerman Khan on 10/20/19 1:[address] Patient Name: NIELS HENSLEY Encounter No: [id number] : 1960 Primary Insurance: MEDICARE A & B Anticipated DC Date: 10-20-2019 Planned Disposition: Other Type of Facility External Planned Provider: : ZEB KIRBY DCP follow-up note: CM RECEIVED ORDER FOR NEBULIZER. CM MET WITH PT IN ROOM, PT HAS NO OXYGEN OR NEBULIZER REPORTING BOTH WERE PUT ON THE STREET BY HER ROOM MATE. CM EXPLAINED THAT PT WILL NEED POLICE REPORT FOR ANY HOPES THAT INSURANCE WILL PAY TO REPLACE THE EQUIPMENT. PT STATES SHE DOES NOT THINK SHE NEEDS OXYGEN AND WILL CALL THE POLICE DEPARTMENT. PT WANTS TO USE [employer] AND SIGNED CHOICE FOR [employer]. IMPORTANT MESSAGE FROM [employer]IC[employer] PROVIDED AND EXPLAINED. PT CALLED [employer] AND FILED REPORT REGARDING LOSS OF OXYGEN AND NEBULIZER. REFERENCE NUMBER [id number]. PT DENIES FURTHER NEEDS FOR DISCHARGE HOME TO [facility]. CM SPOKE TO DR. SHOEMAKER WHO WILL SIGN ORDER FOR NEBULIZER. PT WAS TESTED FOR OXYGEN, PT WAS 95% ON ROOM AIR AT REST, 92% DURING EXERTION ON ROOM AIR. PT DID NOT QUALIFY FOR HOME / PORTABLE OXYGEN. CM CALLED [employer], [phone], SPOKE TO FLORES WHO WILL PROCESS THE NEBULIZER ORDER AND WILL CALL [place] [employer] TO OBTAIN THE POLICE REPORT. CM FAXED REFERRAL AND SIGNED ORDER TO [facility] AT [phone]. [facility] TO PROCESS NEBULIZER ORDER AND DELIVER TO PT IN HOSPITAL FOR DISCHARGE HOME. Jerman Khan, CASE MANAGMENT DCP- Discharge Planning Updated by [email or web address]: Milagro Sinha on 10/17/19 4:[address] DC PLAN: Return to [facility] ANTICIPATED DC NEEDS: Oxygen and portable. See below. CM met with patient to complete initial dc planning assessment. CM educated patient on the CM role and verbal consent given by patient to complete assessment. CM verified patient's address, phone number, and emergency contact phone numbers. Patient lives at [facility] at this time. Stated when she was dc from hospital a few weeks ago she return home with her roommate. She reports she was sent home with oxygen and portability. She stated a week after dc her roommate kicked her out. She stated he sat her oxygen tank and portable out and is is now gone. She stated the roommates name is Curly Fernando and his address is [address] [place] [address]. [facility] the [facility] that provided the o2. CM called Nav with [employer] who stated she would come to hospital to visit with patient on Wednesday. At discharge patient plans to return to [facility] and feels this is a safe discharge. CM discussed availability of home health, rehab services, and medical equipment. Patient denied further known discharge needs at this time. Transportation provider at discharge will be [facility] . CM will continue to follow and will assist as needed with dc plans/needs. Milagro Sinha RN, [facility] DCPIA - Discharge Planning Initial Assessment Updated by [email or web address]: Milagro Sinha on 10/17/19 5:54 pm * Is the patient Alert and Oriented? Yes * How many steps to enter\exit or inside your home? None * PCP Dr. Doll * Pharmacy [facility]/ * Preadmission Environment Other * Other Environment [facility] * Facility Name [facility] * ADLs Independent * Equipment Oxygen * Other Equipment Had portable and home O2. Room-mate kicked her out and threw away her oxygen and portable. * List name and contact numbers for known caregivers / representatives who currently or will assist patient after discharge: [facility] @ [phone] * Additional services required to return to the preadmission environment? Yes * Can the patient safely return to the preadmission environment? Yes * Has this patient been hospitalized within the prior 30 days at any hospital? Yes Coverage Notice Reviewer: [id number] Khan Notice Issued Date-Time: 10/20/2019 11:40 Notice Type: IM Discharge Notice Notice Delivered To: Patient Relationship to Patient: Vessel Crew Member Name: Delivery Method: HAND - Hand Delivered Bonnie Days: Prior Verbal Notification: Recipient Understood Notice: Yes Recipient Signature: Yes Med Rec Note Co-signed by Attending: Coverage Notice Comment: Reviewer: RUSSEL Khan Notice Issued Date-Time: 10/20/2019 11:40 Notice Type: Patient Choice Letter Notice Delivered To: Patient Relationship to Patient: Vessel Crew Member Name: Delivery Method: HAND - Hand Delivered Bonnie Days: Prior Verbal Notification: Recipient Understood Notice: Yes Recipient Signature: Yes Med Rec Note Co-signed by Attending: Coverage Notice Comment: [employer] export: 10/20/19 1:18 Patient Name: NIELS HENSLEY Page [id number] at 1644 All edits/amendments must be made on the electronic document DICTATION DATE: 10/21/191643 PRACTICING UROLOGIST: JOSÉ MIGUEL 10/21/191643 RPT#: [id number] DC DATE: STATUS: ADM IN [facility] [address] [place] [address] END OF REPORT
--- NOTE | 2019-10-21 17:27 | NUR ---
DISCHARGE INSTRUCTIONS GIVEN TO PT. PT HAS NO FURTHER QUESTIONS AT THIS TIME. TELEMETRY DC'D. PT HAS NO IV. PT STATES SHE WILL CALL RIDE AND LET US KNOW WHEN THEY ARE HERE. I VERBALIZED UNDERSTANDING.
--- NOTE | 2019-10-21 17:39 | NUR ---
DISCHARGE INSTRUCTIONS GIVEN TO PT. PT HAS NO FURTHER QUESTIONS. DISCHARGE PAPERS SIGNED. LEFT HAND 20G IV DC'D WITH CATH TIP INTACT. TELEMETRY DC'D. PT CALLING SON TO COME PICK HER UP AND WILL LET US KNOW WHEN HE IS HERE SO STAFF CAN TAKE HER DOWN.
--- NOTE | 2019-10-21 18:02 | NUR ---
I have reviewed this patient and I concur with the Shift Assessment completed by the Licensed Practical Nurse today this shift.
--- NOTE | 2019-10-21 18:12 | NUR ---
PT TAKEN DOWN VIA WC AND LEFT WITH FRIENDS IN PERSONAL CAR.
--- NOTE | 2019-10-22 17:37 | MORECARE ---
CASE MANAGEMENT DISCHARGE SUMMARY PATIENT: NIELS HENSLEY MUKUL UNIT: [id number] ADM DATE: 10/17/19 AGE: 58 : 60 SEX: F ROOM/BED: D.7416 AUTHOR: ARIANNADOC PHYSICIAN: REFERRING PHYSICIAN: DENNISE MAK MD DATE OF SERVICE: 10/22/19 Discharge Plan Patient Name: NIELS HENSLEY Facility: [facility]:[place] : 1960 Planned Disposition: Other Type of Facility Anticipated Discharge Date: 10/20/19 Discharge Date: 10/21/2019 Expected LOS: 3 Initial Reviewer: [id number] Initial Review Date: 10/17/2019 Generated: 10/22/19 6:37 pm Comments DCP- Discharge Planning Updated by [email or web address]: Juhi Arenas on 10/21/19 3:[address] Patient Name: NIELS HENSLEY Encounter No: [id number] : 1960 Primary Insurance: MEDICARE A & B Anticipated DC Date: 10-20-2019 Planned Disposition: Other Type of Facility External Planned Provider: : DCP follow-up note: Patient and family in agreement with discharge plan. No changes to plan. NEBULIZER HAS BEEN DELIVERED TO PATIENT. Case management will follow and assist as needed. Juhi Arenas DCP- Discharge Planning Updated by [id number]: Jerman Khan on 10/20/19 1:[address] Patient Name: NIELS HENSLEY Encounter No: [id number] : 1960 Primary Insurance: MEDICARE A & B Anticipated DC Date: 10-20-2019 Planned Disposition: Other Type of Facility External Planned Provider: : ZEB KIRBY DCP follow-up note: CM RECEIVED ORDER FOR NEBULIZER. CM MET WITH PT IN ROOM, PT HAS NO OXYGEN OR NEBULIZER REPORTING BOTH WERE PUT ON THE STREET BY HER ROOM MATE. CM EXPLAINED THAT PT WILL NEED POLICE REPORT FOR ANY HOPES THAT INSURANCE WILL PAY TO REPLACE THE EQUIPMENT. PT STATES SHE DOES NOT THINK SHE NEEDS OXYGEN AND WILL CALL THE POLICE DEPARTMENT. PT WANTS TO USE [employer] AND SIGNED CHOICE FOR [employer]. IMPORTANT MESSAGE FROM [employer] PROVIDED AND EXPLAINED. PT CALLED [employer] AND FILED REPORT REGARDING LOSS OF OXYGEN AND NEBULIZER. REFERENCE NUMBER [id number]. PT DENIES FURTHER NEEDS FOR DISCHARGE HOME TO [facility]. CM SPOKE TO DR. SHOEMAKER WHO WILL SIGN ORDER FOR NEBULIZER. PT WAS TESTED FOR OXYGEN, PT WAS 95% ON ROOM AIR AT REST, 92% DURING EXERTION ON ROOM AIR. PT DID NOT QUALIFY FOR HOME / PORTABLE OXYGEN. CM CALLED [employer], [phone], SPOKE TO FLORES WHO WILL PROCESS THE NEBULIZER ORDER AND WILL CALL [employer] TO OBTAIN THE POLICE REPORT. CM FAXED REFERRAL AND SIGNED ORDER TO [facility] AT [phone]. [facility] TO PROCESS NEBULIZER ORDER AND DELIVER TO PT IN HOSPITAL FOR DISCHARGE HOME. Jerman Khan, CASE MANAGMENT DCP- Discharge Planning Updated by [id number]: Milagro Sinha on 10/17/19 4:[address] DC PLAN: Return to [facility] ANTICIPATED DC NEEDS: Oxygen and portable. See below. CM met with patient to complete initial dc planning assessment. CM educated patient on the CM role and verbal consent given by patient to complete assessment. CM verified patient's address, phone number, and emergency contact phone numbers. Patient lives at [facility] at this time. Stated when she was dc from hospital a few weeks ago she return home with her roommate. She reports she was sent home with oxygen and portability. She stated a week after dc her roommate kicked her out. She stated he sat her oxygen tank and portable out and is is now gone. She stated the roommates name is Curly Fernando and his address is [address] [place] [address]. She stated [employer] was the company that provided the o2. CM called Nav with [employer] who stated she would come to hospital to visit with patient on Wednesday. At discharge patient plans to return to [facility] and feels this is a safe discharge. CM discussed availability of home health, rehab services, and medical equipment. Patient denied further known discharge needs at this time. Transportation provider at discharge will be [facility] . CM will continue to follow and will assist as needed with dc plans/needs. Milagro Sinha RN, [facility] DCPIA - Discharge Planning Initial Assessment Updated by [id number]: Milagro Sinha on 10/17/19 5:54 pm * Is the patient Alert and Oriented? Yes * How many steps to enter\exit or inside your home? None * PCP Dr. Doll * Pharmacy [facility] * Preadmission Environment Other * Other Environment [facility] * Facility Name [facility] * ADLs Independent * Equipment Oxygen * Other Equipment Had portable and home O2. Room-mate kicked her out and threw away her oxygen and portable. * List name and contact numbers for known caregivers / representatives who currently or will assist patient after discharge: [facility] @ [phone] * Additional services required to return to the preadmission environment? Yes * Can the patient safely return to the preadmission environment? Yes * Has this patient been hospitalized within the prior 30 days at any hospital? Yes Coverage Notice Reviewer: [id number] Khan Notice Issued Date-Time: 10/20/2019 11:40 Notice Type: IM Discharge Notice Notice Delivered To: Patient Relationship to Patient: Manager Wholesale Name: Delivery Method: HAND - Hand Delivered Bonnie Days: Prior Verbal Notification: Recipient Understood Notice: Yes Recipient Signature: Yes Med Rec Note Co-signed by Attending: Coverage Notice Comment: Reviewer: RUSSEL Khan Notice Issued Date-Time: 10/20/2019 11:40 Notice Type: Patient Choice Letter Notice Delivered To: Patient Relationship to Patient: Manager Wholesale Name: Delivery Method: HAND - Hand Delivered Bonnie Days: Prior Verbal Notification: Recipient Understood Notice: Yes Recipient Signature: Yes Med Rec Note Co-signed by Attending: Coverage Notice Comment: [employer] [facility] export: 10/21/19 3:44 Patient Name: NIELS HENSLEY Page 37917 at 1737 All edits/amendments must be made on the electronic document DICTATION DATE: 10/22/191736 SOCIAL MEDIA MARKETING SPECIALIST: JOSÉ MIGUEL 10/22/191736 RPT#: [id number] DC DATE:10/21/19 STATUS: DIS IN [facility] [address] [place] [address] END OF REPORT
== END 2019-10-21 18:12 | disposition home or self-care (01) | DRG 194 ==
LOC: D.ER 10:13 → D.M2 14:12
PROVIDERS: Family Medicine; ADMIT Family Medicine; ATTEND Family Medicine
DX: J18.1 Lobar pneumonia, unspecified organism (principal); F17.213 Nicotine dependence, cigarettes, with withdrawal; J98.11 Atelectasis; I25.10 Atherosclerotic heart disease of native coronary artery without angina pectoris; I10 Essential (primary) hypertension; G89.29 Other chronic pain; M54.9 Dorsalgia, unspecified; F31.9 Bipolar disorder, unspecified; J01.90 Acute sinusitis, unspecified; J43.9 Emphysema, unspecified

== ENCOUNTER 2019-12-11 14:05 | Emergency (ER) | payer MEDICARE ==
[~2019-12-11] VITALS: Ht 162.6 cm; Wt 72.7 kg
[~2019-12-11 14:05] MED LIST changes: +MUCINEX DM ER1 EAC1 PO; +NORVASC5 MG PO; +PLAVIX75 MG PO; +SINGULAIR10 MG PO; +VALIUM 2 MG TAB2 MG PO
[2019-12-11 14:22] VITALS: Ht 162.6 cm; Wt 72.7 kg
[2019-12-11 14:39] LABS: BASOPHILS 0.3 % (0-2); EOSINOPHILS 9.5 % (0-7); HEMATOCRIT 37.1 % (36.0-48.0); HEMOGLOBIN 12.4 g/dL (12-16); IMMATURE GRANULOCYTES 0.3 % (0-5); MCH 30.6 pg (26.0-34.0); MCHC 33.4 g/dL (31.0-37.0); MCV 91.6 fL (80.0-100.0); MEAN PLATELET VOLUME 9.2 fL (7.4-10.4); MONOCYTES 8.5 % (2-11); NEUTROPHILS 49.4 % (40-80); PLATELET COUNT 234 10x3/uL (130-400); RBC 4.05 10x6/uL (4.00-5.40); RDW 13.7 % (11.5-14.5); WBC 12.4 10x3/uL (4.8-10.8)
[2019-12-11 15:00] LABS: APPEARANCE CLEAR (CLEAR); BILIRUBIN NEGATIVE (NEGATIVE); COLOR YELLOW (YELLOW); GLUCOSE NEGATIVE (NEGATIVE); KETONE NEGATIVE (NEGATIVE); NITRITE NEGATIVE (NEGATIVE); PROTEIN NEGATIVE (NEGATIVE); SPECIFIC GRAVITY 1.015 (1.005-1.020); UROBILINOGEN NORMAL (NORMAL)
[2019-12-11 15:01] LABS: BACTERIA FEW /hpf (NEGATIVE); RED CELLS - URINE OCC /hpf (0-5); WHITE CELLS - URINE OCC /hpf (NEGATIVE)
[2019-12-11 15:03] LABS: CALC OSMOLALITY 283 mosm/kg (275-300); CALCIUM 8.7 mg/dL (8.5-10.1); CARBON DIOXIDE 28.6 mmol/L (21.0-32.0); CHLORIDE - SERUM 103 mmol/L (98-107); GLUCOSE 102 mg/dL (74-106); POTASSIUM - SERUM 3.1 mmol/L (3.5-5.1); SODIUM 142 mmol/L (136-145); UREA NITROGEN 15 mg/dL (7-18); eGFR NON AFRICAN AMERICAN 60 mL/min (90-120)
[2019-12-11 15:12] LABS: ALBUMIN 3.6 g/dL (3.4-5.0); ALKALINE PHOSPHATASE 80 U/L (46-116); ALT (SGPT) 29 U/L (10-68); AMYLASE - SERUM 43 U/L (25-115); BILIRUBIN - TOTAL 0.39 mg/dL (0.2-1.3); LIPASE 162 U/L (73-393); PROTEIN - SERUM 6.9 g/dL (6.4-8.2)
[2019-12-11 15:15] LABS: TROPONIN-I < 0.017 ng/mL (0.000-0.060)
[2019-12-11] MEDS ORDERED: PROTONIX40 MG PO (18:24)
[2019-12-11] MEDS ORDERED: KEFLEX500 MG PO (18:26)
[2019-12-11] MEDS ORDERED: MACROBID100 MG PO (18:26)
[2019-12-11 18:38] VITALS: BP 115/76
== END 2019-12-11 18:38 | disposition home or self-care (01) ==
LOC: D.ER 14:05
PROVIDERS: Family Medicine
DX: R10.13 Epigastric pain (principal); Z95.5 Presence of coronary angioplasty implant and graft

== ENCOUNTER → 2020-01-19 10:00 | Outpatient (CLI) | payer MEDICARE ==
[2019-12-11 14:22] VITALS: BMI 27.5
[~2020-01-19 10:00] MED LIST changes: +KEFLEX500 MG PO; +MACROBID100 MG PO
== END | disposition home or self-care (01) ==
LOC: D.MAMMO 10:00
PROVIDERS: ATTEND Family Medicine
DX: Z12.31 Encounter for screening mammogram for malignant neoplasm of breast (principal)

== ENCOUNTER → 2020-02-01 07:37 | Outpatient (CLI) | payer MEDICARE ==
[2019-12-11 14:22] VITALS: BMI 27.5
== END | disposition home or self-care (01) ==
LOC: D.US 07:37
PROVIDERS: ATTEND Family Medicine
DX: R10.11 Right upper quadrant pain (principal)

== ENCOUNTER 2020-06-22 11:40 | Observation (INO) | payer MEDICARE ==
[~2020-06-22] VITALS: Ht 162.6 cm; Wt 77.3 kg
[2020-06-22] MEDS ORDERED: BREO ELLIPTA 21 EACH (11:49)
[2020-06-22] MEDS ORDERED: INCRUSE ELLI62.5 MCG INH (11:49)
[2020-06-22] MEDS ORDERED: ZOLOFT100 MG PO (11:50)
[2020-06-22] MEDS ORDERED: VENTOLIN HFA [SP8 GM INH (11:50)
[2020-06-22] MEDS ORDERED: FUROSEMIDE40 MG PO (11:51)
[2020-06-22] MEDS ORDERED: VALIUM5 MG PO (11:52)
[2020-06-22] MEDS ORDERED: KLOR-CON 1010 MEQ PO (11:52)
[2020-06-22] MEDS ORDERED: NAPROSYN500 MG PO (11:53)
[2020-06-22] MEDS ORDERED: ZOFRAN4 MG PO (11:53)
[2020-06-22 12:22] LABS: BASOPHILS 0.4 % (0-2); EOSINOPHILS 3.7 % (0-7); HEMATOCRIT 37.6 % (36.0-48.0); HEMOGLOBIN 12.6 g/dL (12-16); IMMATURE GRANULOCYTES 0.2 % (0-5); LYMPHOCYTES 43.6 % (15-50); MCH 31.7 pg (26.0-34.0); MCHC 33.5 g/dL (31.0-37.0); MCV 94.5 fL (80.0-100.0); MEAN PLATELET VOLUME 9.8 fL (7.4-10.4); NEUTROPHILS 44.1 % (40-80); PLATELET COUNT 259 10x3/uL (130-400); RBC 3.98 10x6/uL (4.00-5.40); WBC 9.2 10x3/uL (4.8-10.8)
[2020-06-22 12:42] LABS: CALC OSMOLALITY 273 mosm/kg (275-300); CALCIUM 9.2 mg/dL (8.5-10.1); CARBON DIOXIDE 28.1 mmol/L (21.0-32.0); CHLORIDE - SERUM 102 mmol/L (98-107); GLUCOSE 100 mg/dL (74-106); POTASSIUM - SERUM 3.8 mmol/L (3.5-5.1); SODIUM 136 mmol/L (136-145); UREA NITROGEN 19 mg/dL (7-18); eGFR NON AFRICAN AMERICAN 27 mL/min (90-120)
[2020-06-22 12:47] LABS: ALBUMIN 3.6 g/dL (3.4-5.0); ALKALINE PHOSPHATASE 64 U/L (30-120); ALT (SGPT) 36 U/L (10-68); AMYLASE - SERUM 28 U/L (25-115); BILIRUBIN - TOTAL 0.65 mg/dL (0.2-1.3); LIPASE 113 U/L (73-393); PROTEIN - SERUM 7.2 g/dL (6.4-8.2); TROPONIN-I < 0.017 ng/mL (0.000-0.060)
[2020-06-22 12:48] VITALS: BP 102/70
--- NOTE | 2020-06-22 12:48 | NUR ---
PT LAYING IN BED AT THIS TIME. RESPIRATIONS ARE EVEN AND UNLABORED. NO DISTRESS NOTED. WILL CONTINUE TO MONITOR.
[2020-06-22 15:15] LABS: BILIRUBIN NEGATIVE (NEGATIVE); GLUCOSE NEGATIVE (NEGATIVE); KETONE NEGATIVE (NEGATIVE); NITRITE NEGATIVE (NEGATIVE); SPECIFIC GRAVITY 1.005 (1.005-1.020); UROBILINOGEN NORMAL (NORMAL)
--- NOTE | 2020-06-22 16:34 | NUR ---
RECEIVED PATIENT FROM ER VIA WHEELCHAIR ACCOMPANIED BY STAFF. ALERT AND ORIENTED. NO C/O PAIN. NO S/S OF ACUTE DISTRESS NOTED. IV TO LEFT HAND, NS INFUSING @ 125ML/HR. SITE PATENT WITHOUT REDNESS OR SWELLING. DENIES ANY NEEDS AT THIS TIME. CALL LIGHT IN REACH. WILL CONTINUE TO MONITOR.
[2020-06-22 17:17] VITALS: Ht 162.6 cm; Wt 77.3 kg
--- NOTE | 2020-06-22 18:42 | NUR ---
RESTING IN BED WITH EYES OPEN. NO C/O PAIN. NO S/S OF ACUTE DISTRESS NOTED. DENIES ANY NEEDS AT THIS TIME. CALL LIGHT IN REACH. WILL CONTINUE TO MONITOR.
[2020-06-22 19:34] LABS: CREATINE KINASE 84 UL (21-215); TROPONIN-I < 0.017 ng/mL (0.000-0.060)
--- NOTE | 2020-06-22 19:34 | NUR ---
RECIEVED UP IN BED WITH HOB ELEVATED. ALERT AND ORIENTED X4. UP AD EJ TO B/R. IV TO LT HAND WITH NS AT 125CC/HR. WEARS DEPENDS. LT ARM RESERVED D/T AVF. DENIES ANY NEEDS AT THIS TIME.
[2020-06-22 20:47] VITALS: BP 120/57
[2020-06-22 23:45] LABS: CKMB 1.1 U/L (0.0-3.6); CREATINE KINASE 80 UL (21-215); TROPONIN-I < 0.017 ng/mL (0.000-0.060)
[2020-06-23 03:46] LABS: BASOPHILS 0.5 % (0-2); EOSINOPHILS 3.6 % (0-7); HEMATOCRIT 32.1 % (36.0-48.0); HEMOGLOBIN 10.3 g/dL (12-16); IMMATURE GRANULOCYTES 0.5 % (0-5); LYMPHOCYTES 40.4 % (15-50); MCH 30.7 pg (26.0-34.0); MCHC 32.1 g/dL (31.0-37.0); MCV 95.8 fL (80.0-100.0); MEAN PLATELET VOLUME 9.5 fL (7.4-10.4); MONOCYTES 9.7 % (2-11); NEUTROPHILS 45.3 % (40-80); PLATELET COUNT 210 10x3/uL (130-400); RBC 3.35 10x6/uL (4.00-5.40); RDW 12.9 % (11.5-14.5); WBC 8.1 10x3/uL (4.8-10.8)
[2020-06-23 04:17] LABS: ALBUMIN 2.6 g/dL (3.4-5.0); ALKALINE PHOSPHATASE 65 U/L (30-120); ALT (SGPT) 93 U/L (10-68); BILIRUBIN - TOTAL 0.48 mg/dL (0.2-1.3); CALC OSMOLALITY 282 mosm/kg (275-300); CARBON DIOXIDE 25.7 mmol/L (21.0-32.0); CHLORIDE - SERUM 111 mmol/L (98-107); CKMB 1.3 U/L (0.0-3.6); CREATINE KINASE 75 UL (21-215); CREATININE - SERUM 1.4 mg/dL (0.6-1.3); GLUCOSE 89 mg/dL (74-106); POTASSIUM - SERUM 4.1 mmol/L (3.5-5.1); PROTEIN - SERUM 5.4 g/dL (6.4-8.2); SODIUM 142 mmol/L (136-145); TROPONIN-I < 0.017 ng/mL (0.000-0.060); UREA NITROGEN 14 mg/dL (7-18); eGFR NON AFRICAN AMERICAN 41 mL/min (90-120)
[2020-06-23 04:30] VITALS: BP 94/66
--- NOTE | 2020-06-23 07:20 | NUR ---
RECIEVE REPORT. RESTING IN BED WITH EYES CLOSED. NO SIGNS OF DISTRESS. CONTINUE PLAN OF CARE AND SAFETY PRECAUTIONS.
[2020-06-23 09:17] VITALS: BP 103/60
[2020-06-23 09:34] LABS: % SATURATION 38 % (15-55); IRON 88 ug/dl (35-150); TOTAL IRON BIND CAPACITY 229 ug/dl (260-445); UNSAT IRON BIND CAPACITY 141 ug/dl (150-375)
[2020-06-23 12:08] VITALS: BP 120/65
[2020-06-23] MEDS ORDERED: NICODERM CQ1 EAC3 TOPICAL (14:39)
[2020-06-23 17:11] VITALS: BP 112/70
--- NOTE | 2020-06-23 17:12 | NUR ---
ALERT AND ORIENTED X4. SITTING UP IN BED. DC LT HAND IV TIP INTACT. DISCHARGE INSTRUCTIONS GIVEN VERBALLY AND WRITTEN. DISCHARGE PAPERS SIGNED ON CHART. ESCORT TO [facility] VIA WHEELCHAIR. REMAINS FREE FORM INJURY.
== END 2020-06-23 17:17 | disposition home or self-care (01) ==
LOC: D.ER 11:40 → D.M2 15:29 → OBSVTIME 15:29 → D.M2 06-23 17:17
PROVIDERS: Emergency Medicine; ADMIT Family Medicine; ATTEND Family Medicine
DX: E86.0 Dehydration (principal); R11.2 Nausea with vomiting, unspecified; K52.9 Noninfective gastroenteritis and colitis, unspecified; K57.90 Diverticulosis of intestine, part unspecified, without perforation or abscess without bleeding; M87.9 Osteonecrosis, unspecified; N28.1 Cyst of kidney, acquired; I25.10 Atherosclerotic heart disease of native coronary artery without angina pectoris; I10 Essential (primary) hypertension; F31.9 Bipolar disorder, unspecified; F41.8 Other specified anxiety disorders; J44.9 Chronic obstructive pulmonary disease, unspecified; J45.909 Unspecified asthma, uncomplicated

== ENCOUNTER 2020-06-27 16:44 | Emergency (ER) | payer MEDICARE ==
[~2020-06-27] VITALS: Ht 162.6 cm; Wt 77.3 kg
[~2020-06-27 16:44] MED LIST changes: +BREO ELLIPTA 21 EACH; +FUROSEMIDE40 MG PO; +INCRUSE ELLI62.5 MCG INH; +KLOR-CON 1010 MEQ PO; +NAPROSYN500 MG PO; +NICODERM CQ1 EAC3 TOPICAL; +VALIUM5 MG PO; +VENTOLIN HFA [SP8 GM INH; +ZOFRAN4 MG PO; +ZOLOFT100 MG PO
[2020-06-27 16:54] VITALS: Ht 162.6 cm; Wt 77.3 kg
[2020-06-27 17:21] LABS: BASOPHILS 0.5 % (0-2); EOSINOPHILS 3.4 % (0-7); HEMATOCRIT 34.9 % (36.0-48.0); HEMOGLOBIN 11.8 g/dL (12-16); IMMATURE GRANULOCYTES 0.3 % (0-5); LYMPHOCYTES 41.6 % (15-50); MCH 31.5 pg (26.0-34.0); MCHC 33.8 g/dL (31.0-37.0); MCV 93.1 fL (80.0-100.0); MEAN PLATELET VOLUME 9.5 fL (7.4-10.4); MONOCYTES 7.3 % (2-11); NEUTROPHILS 46.9 % (40-80); RBC 3.75 10x6/uL (4.00-5.40); RDW 13.1 % (11.5-14.5); WBC 12.3 10x3/uL (4.8-10.8)
[2020-06-27 17:22] LABS: PLATELET COUNT 281 10x3/uL (130-400)
[2020-06-27 17:33] LABS: CALC OSMOLALITY 280 mosm/kg (275-300); CALCIUM 9.2 mg/dL (8.5-10.1); CARBON DIOXIDE 29.3 mmol/L (21.0-32.0); CHLORIDE - SERUM 105 mmol/L (98-107); CREATININE - SERUM 1.2 mg/dL (0.6-1.3); GLUCOSE 104 mg/dL (74-106); POTASSIUM - SERUM 3.2 mmol/L (3.5-5.1); SODIUM 142 mmol/L (136-145); UREA NITROGEN 7 mg/dL (7-18); eGFR NON AFRICAN AMERICAN 49 mL/min (90-120)
[2020-06-27 17:34] LABS: BILIRUBIN NEGATIVE (NEGATIVE); GLUCOSE NEGATIVE (NEGATIVE); KETONE NEGATIVE (NEGATIVE); NITRITE NEGATIVE (NEGATIVE); UROBILINOGEN NORMAL (NORMAL)
[2020-06-27 17:35] LABS: BACTERIA FEW /hpf (NEGATIVE); EPITHELIAL CELLS 0-5 /hpf (0-5); RED CELLS - URINE 0-5 /hpf (0-5); WHITE CELLS - URINE 0-5 /hpf (NEGATIVE)
[2020-06-27 17:43] LABS: ALBUMIN 3.2 g/dL (3.4-5.0); ALKALINE PHOSPHATASE 70 U/L (30-120); ALT (SGPT) 44 U/L (10-68); AMYLASE - SERUM 37 U/L (25-115); BILIRUBIN - TOTAL 0.36 mg/dL (0.2-1.3); LIPASE 272 U/L (73-393); PROTEIN - SERUM 6.9 g/dL (6.4-8.2); TROPONIN-I < 0.017 ng/mL (0.000-0.060)
[2020-06-27] MEDS ORDERED: TYLENOL W/CODEI1 TAB PO (19:05)
[2020-06-27] MEDS ORDERED: ZOFRAN ODT4 MG/UDTAB PO (19:05)
[2020-06-27 19:48] VITALS: BP 97/65
== END 2020-06-27 19:50 | disposition home or self-care (01) ==
LOC: D.ER 16:44
PROVIDERS: Family Medicine
DX: R10.9 Unspecified abdominal pain (principal); E87.6 Hypokalemia; I10 Essential (primary) hypertension; J44.9 Chronic obstructive pulmonary disease, unspecified; Z72.0 Tobacco use

== ENCOUNTER 2020-07-26 05:46 | Day surgery (SDC) | payer MEDICARE ==
[~2020-07-26] VITALS: Ht 162.6 cm; Wt 76.8 kg
--- NOTE | ~2020-07-26 | OP ---
PATIENT NAME: NIELS HENSLEY MEDICAL RECORD: [id number] :[birth year] LOCATION:RON ADMISSION DATE: SURGEON: BERRY SCHUMACHER DO DATE OF OPERATION: 07/26/2020 PROCEDURE: EGD with biopsies. INDICATIONS FOR PROCEDURE: Right upper quadrant abdominal pain and diarrhea. SCOPE: DCMobility video gastroscope. MEDICATIONS: Propofol 80 mg IV per anesthesia. ESTIMATED BLOOD LOSS: Minimal. COMPLICATIONS: None. FINDINGS AND DESCRIPTION OF PROCEDURE: Informed consent was given. The patient was made comfortable with the above medication. After reaching an adequate level of sedation by slow IV push, the patient was placed on her left side. The endoscope was advanced under direct visualization through the mouth to the second portion of the duodenum with ease. The entire esophagus appeared normal down to the GE junction. Cold forceps biopsies were taken from the mid esophagus to rule out the presence of eosinophils. At the GE junction, there was evidence of LA class A reflux-induced esophagitis. The endoscope was advanced beyond the GE junction into the stomach and retroflexed to view the cardia and fundus, which appeared normal. Throughout the distal body of the stomach as well as the antrum and prepyloric region, there was some minor chronic gastritis changes consisting of erythema and granularity. Cold forceps biopsies were taken from the antrum and incisura to submit for histopathology and to rule out the presence of H. pylori. The endoscope was advanced beyond the pylorus into the duodenum where there was some granularity and erythema consistent with mild duodenitis. This involved mainly the bulb. Once the endoscope turned into the second portion of the duodenum, appearances were normal. Cold forceps biopsies were taken from both the second portion and the bulb to submit for histopathology. The endoscope was withdrawn from the patient. The patient tolerated the procedure well and there were no complications. IMPRESSIONS: 1. LA class A reflux-induced esophagitis. 2. Mild chronic gastritis changes. 3. Duodenitis involving the bulb. PLAN AND RECOMMENDATIONS: 1. Discharge home when recovery parameters are met. 2. Follow up biopsy specimen results. 3. GERD diet and reflux precautions. 4. Continue current medications. 5. Proceed with colonoscopy as scheduled. 6. Gastric emptying scan to evaluate upper digestive symptoms. TRANSINT:[id number] Voice Confirmation ID: [id number] DOCUMENT ID: [id number] OPERATIVE REPORT [id number] AYDEN,BERRY FORD DO CC: [id number] DICTATION DATE: 07/26/20817 BURRER OPERATOR: 07/26/20 1412 [facility] 07/26/20 [place] [id number] [place] [id number]
[~2020-07-26 05:46] MED LIST changes: +TYLENOL W/CODEI1 TAB PO; +ZOFRAN ODT4 MG/UDTAB PO
[2020-07-26 06:17] LABS: HEMATOCRIT 38.3 % (36.0-48.0); HEMOGLOBIN 13.1 g/dL (12-16); MCH 31.3 pg (26.0-34.0); MCHC 34.2 g/dL (31.0-37.0); MCV 91.6 fL (80.0-100.0); MEAN PLATELET VOLUME 9.9 fL (7.4-10.4); RBC 4.18 10x6/uL (4.00-5.40); RDW 12.5 % (11.5-14.5); WBC 14.2 10x3/uL (4.8-10.8)
[2020-07-26 06:27] LABS: ANION GAP 12.1 mmol/L (8-16); CALCIUM 9.3 mg/dL (8.5-10.1); CARBON DIOXIDE 28.7 mmol/L (21.0-32.0); CREATININE - SERUM 1.1 mg/dL (0.6-1.3)
[2020-07-26 06:29] LABS: POTASSIUM - SERUM 2.8 mmol/L (3.5-5.1)
[2020-07-26] MEDS ORDERED: BREO ELLIPTA 11 EACH INH (06:34)
[2020-07-26] MEDS ORDERED: K-TAB10 MEQ PO (06:36)
[2020-07-26] MEDS ORDERED: REXULTI1 MG PO (06:37)
[2020-07-26 07:23] LABS: APTT 39.9 SECONDS (22.8-39.4)
[2020-07-26 07:24] VITALS: Ht 162.6 cm; Wt 76.8 kg
[2020-07-26 07:30] LABS: INR 1.03 (0.85-1.17); PROTIME 13.5 SECONDS (11.6-15.0)
--- NOTE | 2020-07-26 09:16 | NUR ---
899 GES HAS BEEN SCHEDULED FOR PATIENT. 905 IV DC'D. CATHETER TIP INTACT. NO BLEEDING AT SITE. BANDAID APPLIED. REVIEWED DISCHARGE INSTRUCTIONS WITH PATIENT WHO VOICES UNDERSTANDING OF INSTRUCTIONS.
--- NOTE | 2020-07-26 09:21 | NUR ---
0910 PT HAS MET DISCHARGE CRITERIA. WAITING FOR HER TRANSPORT HOME.
== END 2020-07-26 09:25 | disposition home or self-care (01) ==
LOC: D.OPS 05:46
PROVIDERS: Anesthesiology; ATTEND Internal Medicine Gastroenterology
DX: R10.11 Right upper quadrant pain (principal); R19.7 Diarrhea, unspecified; K21.9 Gastro-esophageal reflux disease without esophagitis; K29.50 Unspecified chronic gastritis without bleeding; K29.80 Duodenitis without bleeding

== ENCOUNTER 2020-07-29 09:57 | Day surgery (SDC) | payer MEDICARE ==
[~2020-07-29] VITALS: Ht 162.6 cm; Wt 76.8 kg
[~2020-07-29 09:57] MED LIST changes: +BREO ELLIPTA 11 EACH INH; +K-TAB10 MEQ PO
[2020-07-29 10:22] LABS: HEMATOCRIT 37.6 % (36.0-48.0); HEMOGLOBIN 12.6 g/dL (12-16); MCH 31.1 pg (26.0-34.0); MCHC 33.5 g/dL (31.0-37.0); MCV 92.8 fL (80.0-100.0); MEAN PLATELET VOLUME 9.7 fL (7.4-10.4); RBC 4.05 10x6/uL (4.00-5.40); RDW 12.6 % (11.5-14.5); WBC 11.1 10x3/uL (4.8-10.8)
[2020-07-29 10:28] LABS: ANION GAP 13.3 mmol/L (8-16); CALCIUM 9.3 mg/dL (8.5-10.1); CARBON DIOXIDE 27.1 mmol/L (21.0-32.0); POTASSIUM - SERUM 3.4 mmol/L (3.5-5.1)
[2020-07-29 10:30] LABS: APTT 29.2 SECONDS (22.8-39.4); INR 0.96 (0.85-1.17); PROTIME 12.8 SECONDS (11.6-15.0)
[2020-07-29 10:50] VITALS: Ht 162.6 cm; Wt 76.8 kg
--- NOTE | 2020-07-29 13:25 | NUR ---
0318 DR. ENDY BURNS
--- NOTE | 2020-07-29 13:42 | NUR ---
1340 REPORTS PASSING SOME FLATUS AND FEELING A BIT IMPROVED, LEMON ANIAK SERVED.
--- NOTE | 2020-07-29 14:05 | NUR ---
1400 CONTINUING DISCOMFORT REORTED TO DR. SCHUMACHER, DR. AJ AND ORDERS RECEIVED.
--- NOTE | 2020-07-30 15:18 | OP ---
PATIENT NAME: NIELS HENSLEY MEDICAL RECORD: [id number] :[birth year] LOCATION:[facility] ADMISSION DATE: SURGEON: BERRY SCHUMACHER DO DATE OF OPERATION: 07/29/2020 PROCEDURE: Colonoscopy with polypectomy and biopsies as well as stool collection. INDICATIONS FOR PROCEDURE: Altered bowel function. SCOPE: Olympus video pediatric colonoscope. MEDICATIONS: Propofol 550 mg IV per anesthesia. WITHDRAWAL TIME: 31 minutes. ESTIMATED BLOOD LOSS: Minimal. COMPLICATIONS: None. FINDINGS: Informed consent was given. The patient was made comfortable with the above medication. After reaching an adequate level of sedation by slow IV push, the patient was placed on her left side. A digital rectal examination was performed and was normal. The endoscope was then advanced under direct visualization through the rectum to the cecum, confirmed by the presence of the appendiceal orifice and ileocecal valve. The endoscope was slowly withdrawn and mucosa was carefully examined. The prep quality was fair. There were multiple polyps visualized on today's examination. There were 3 polyps visualized in the ascending colon. They were all benign appearing and sessile and ranged in size from 4 to 8 mm in diameter. The largest was removed using EMR technique with a saline pillow created by an injection of normal saline. This was followed by snare polypectomy. The other 2 polyps were removed using a hot snare. In the transverse colon, there was a single benign-appearing sessile polyp, which measured approximately 5 mm in diameter. It was removed using a hot snare. In the descending colon, there was another benign appearing sessile polyp, which measured approximately 4-5 mm in diameter. It was removed using a hot snare. In the rectum, there were two separate benign-appearing sessile polyps, which measured in size from 3-5 mm in diameter. They were both removed using hot snare. There was evidence of mild diverticulosis involving the sigmoid colon. Retroflexion was performed in the rectum with visualization of grade I internal hemorrhoids without bleeding. The endoscope was withdrawn from the patient. The patient tolerated the procedure well and there were no complications. IMPRESSION: 1. Multiple polyps as described above, removed using a combination of EMR technique and hot snare removal. 2. Mild diverticulosis involving the sigmoid colon. 3. Grade I internal hemorrhoids without bleeding. 4. Otherwise, normal colonoscopy. On this examination, stool was collected to submit for further studies and random biopsies were taken with cold forceps to submit for histopathology and to rule out microscopic colitis. PLAN AND RECOMMENDATIONS: 1. Discharge home when recovery parameters are met. 2. Follow up biopsy specimen results. OPERATIVE REPORT [id number] NIELS HENSLEY 3. High fiber diet. 4. Continue current medications. 5. Trial of dicyclomine 20 mg t.i.d. p.r.n. loose stools or abdominal pain and cramping. 6. Follow up in GI clinic in approximately 1 month. 7. Recall colonoscopy in 2-3 years. TRANSINT:[id number] Voice Confirmation ID: [id number] DOCUMENT ID: [id number] BERRY SCHUMACHER DO at 1518 CC: [id number] DICTATION DATE: 07/29/20 1305 PROFESSIONAL CASTER: 07/30/20 0108 [facility] 07/29/[address] [address]
== END 2020-07-29 15:35 | disposition home or self-care (01) ==
LOC: D.OPS 09:57
PROVIDERS: Anesthesiology; ATTEND Internal Medicine Gastroenterology
DX: R19.4 Change in bowel habit (principal); K63.5 Polyp of colon; K57.30 Diverticulosis of large intestine without perforation or abscess without bleeding; K64.0 First degree hemorrhoids; R10.9 Unspecified abdominal pain

== ENCOUNTER → 2020-08-08 08:12 | Outpatient (CLI) | payer MEDICARE ==
[2020-07-29 10:50] VITALS: BMI 29.0
== END | disposition home or self-care (01) ==
LOC: D.NM 08:12
PROVIDERS: ATTEND Internal Medicine Gastroenterology
DX: R10.9 Unspecified abdominal pain (principal); R14.0 Abdominal distension (gaseous); R11.0 Nausea